=== PATIENT | female | born 1955 | race Caucasian/White ===

== ENCOUNTER 2016-11-20 19:45 | Emergency (ER) | payer MEDICARE, MEDICAID ==
[~2016-11-20] VITALS: Ht 152.4 cm; Wt 78.5 kg
--- NOTE | 2016-11-20 20:12 | ED Integumentary General ---
General Chief Complaint: Skin/Wound Problems Stated Complaint: ARM WOUND Nursing Triage Note: PT TO ED 10 W/ FRIEND FOR C/O BLEEDING WOUND TO LFA. REPORTS HAD SKIN CA FROZEN BY DR ERVIN X2 WKS AGO, BUMPED THE AREA LAST NOC ET HAS BEEN BLEEDING SINCE. NO OTHER C/O VOICED Source: patient Exam Limitations: no limitations History of Present Illness Time seen by provider: 20:10 Initial Comments To ER with complaints of a persistent oozing of blood on the dorsal left forearm. 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 Last night she bumped this area. Since then she's had a slow but persistent oozing of blood. She's had to change the bandage several times. She is on aspirin and Plavix. Timing/Duration: yesterday Severity: moderate Associated Symptoms: denies symptoms Allergies and Home Medications Allergies Coded Allergies: No Known Drug Allergies (Unverified , 11/20/16) Constitutional: see HPI EENTM: see HPI Respiratory: no symptoms reported Cardiovascular: no symptoms reported Genitourinary: no symptoms reported Musculoskeletal: no symptoms reported Skin: see HPI Psychiatric/Neurological: No Symptoms Reported Past Zqonzlo-Xjztjj-Eriidc Hx Patient Social History Alcohol Use: Denies Use Recreational Drug Use: No Smoking Status: Current Everyday Smoker Type Used: Cigarettes 2nd Hand Smoke Exposure: Yes Recent Foreign Travel: No Contact w/Someone Who Travel: No Recent Infectious Disease Expo: No Recent Hopitalizations: No Surgeries Surgeries: Appendectomy, Gallbladder, Hysterectomy, Orthopedic Respiratory Respiratory Disorders: COPD Cardiovascular Cardiac Disorders: Heart Attack, Hypertension Cancer Cancer: Skin Physical Exam Vital Signs Vital Sign - Last 12Hours 11/20/16 19:51 Temp 97.8 Pulse 66 Resp 20 B/P (MAP) 107/71 Pulse Ox 95 O2 Delivery Room Air Capillary Refill : Less Than 3 Seconds General Appearance: WD/WN, no apparent distress HEENT: PERRL/EOMI, normal ENT inspection Neck: non-tender, full range of motion Respiratory: no respiratory distress, no accessory muscle use Gastrointestinal: non tender, soft Neurologic/Psychiatric: alert, normal mood/affect, oriented x 3 Skin: normal color, warm/dry Skin Problem Location: upper extremities (dorsal left forearm there is a open area about 2 cm in diameter with a few small areas of easily controlled bleeding. We will cauterize this with silver nitrate.) Progress/Results/Core Measures Results/Orders Vital Signs/I&O Vital Sign - Last 12Hours 11/20/16 19:51 Temp 97.8 Pulse 66 Resp 20 B/P (MAP) 107/71 Pulse Ox 95 O2 Delivery Room Air Blood Pressure Mean: 83 Departure Impression Impression: Primary Impression: Bleeding from wound Disposition: HOME, SELF-CARE Condition: Stable Departure-Patient Inst. Decision time for Depature: 20:11 Referrals: NO,LOCAL PHYSICIAN (PCP) Primary Care Physician Patient Instructions: NO INSTRUCTIONS GIVEN Add. Discharge Instructions: 1. Follow-up with your doctor next week 3. All discharge instructions reviewed with patient and/or family. Voiced understanding. PIERRE DOMINGUEZ CAR FERRIER Nov 20, 2016 20:12
[2016-11-20 20:14] VITALS: BP 0/0
[2016-11-20] MEDS ORDERED: BACL10TA PO (20:15)
[2016-11-20] MEDS ORDERED: DULO60CA58 PO (20:15)
[2016-11-20] MEDS ORDERED: LEVO125T6 PO (20:15)
[2016-11-20] MEDS ORDERED: CALC600T12 PO (20:15)
[2016-11-20] MEDS ORDERED: TOPI25TA10 PO (20:15)
[2016-11-20] MEDS ORDERED: ASPI-999 PO (20:15)
[2016-11-20] MEDS ORDERED: ROSU10TA24 PO (20:15)
[2016-11-20] MEDS ORDERED: CLOP75TA69 PO (20:15)
[2016-11-20] MEDS ORDERED: DULO30CA48 PO (20:15)
[2016-11-20] MEDS ORDERED: ISOS30TA3 PO (20:15)
[2016-11-20] MEDS ORDERED: BENZ100C23 PO (20:15)
[2016-11-20] MEDS ORDERED: PANT20TA3 PO (20:15)
[2016-11-20] MEDS ORDERED: HYDR-3816 PO (20:15)
[2016-11-20] MEDS ORDERED: NITR0.4T39 SL (20:15)
[2016-11-20] MEDS ORDERED: TRAZ-28 PO (20:15)
[2016-11-20] MEDS ORDERED: UMEC62.5 IH (20:15)
[2016-11-20] MEDS ORDERED: ALPR0.254 PO (20:15)
[2016-11-20] MEDS ORDERED: CETI10TA23 PO (20:15)
== END 2016-11-20 20:14 | disposition home or self-care (01) ==
LOC: EDUNIT# 19:45 → ER 19:49
DX: L76.21 Postprocedural hemorrhage of skin and subcutaneous tissue following a dermatologic procedure (principal); J44.9 Chronic obstructive pulmonary disease, unspecified; I25.2 Old myocardial infarction; I10 Essential (primary) hypertension; F17.210 Nicotine dependence, cigarettes, uncomplicated; Z79.82 Long term (current) use of aspirin; Z79.02 Long term (current) use of antithrombotics/antiplatelets; Z85.828 Personal history of other malignant neoplasm of skin
CPT/HCPCS: 99282

== ENCOUNTER 2016-11-24 21:06 | Emergency (ER) | payer MEDICARE, MEDICAID ==
[~2016-11-24] VITALS: Ht 152.4 cm; Wt 77.6 kg
[~2016-11-24 21:06] MED LIST: ALPR0.254 PO; ASPI-999 PO; BACL10TA PO; BENZ100C23 PO; CALC600T12 PO; CETI10TA23 PO; CLOP75TA69 PO; DULO30CA48 PO; DULO60CA58 PO; HYDR-3816 PO; ISOS30TA3 PO; LEVO125T6 PO; NITR0.4T39 SL; PANT20TA3 PO; ROSU10TA24 PO; TOPI25TA10 PO; TRAZ-28 PO; UMEC62.5 IH
--- OUTSIDE RECORDS SUMMARY | 2016-11-24 21:13 | XMS REPORT | Continuity of Care Document ---
Author Author [employer] Organization [employer] Address Unknown Phone Unavailable Care Team Providers Care [employer] Presser Name Role Phone [employer] Unavailable Unavailable Problems Problem Status Onset Date Classification Date Reported Comments Source Thoracic or lumbosacral neuritis or radiculitis, unspecified 12/31/2014 Diagnosis 01/04/2015 [facility] Cellulitis and abscess of leg, except foot 12/31/2014 Diagnosis 01/04/2015 [facility] Dysuria 12/02/2014 Diagnosis 12/06/2014 [facility] Gross hematuria 12/02/2014 Diagnosis 12/06/2014 [facility] Unspecified chest pain 10/18 Diagnosis 10/23/2014 [facility] Obstructive chronic bronchitis with (acute) exacerbation 10/18/2014 Diagnosis 10/23/2014 [facility] Other and unspecified angina pectoris 10/18/2014 Diagnosis 10/22/2014 [facility] Lumbago 09/03/2014 Diagnosis 09/07/2014 [facility] Unspecified hypothyroidism 09/03/2014 Diagnosis 2014 [facility] Symptomatic menopausal or female climacteric states 09/03/2014 Diagnosis 09/07/2014 [facility] Sciatia 08/23/2014 Diagnosis 08/27/2014 [facility] Hypothyroidism (disorder) Active Problem 01/04/2015 [facility] Lumbar radiculopathy (disorder) Active Problem 2014 [facility] Spondylolisthesis, congenital Diagnosis 08/31/2014 [facility] Degeneration of lumbar or lumbosacral intervertebral disc Diagnosis 08/31/2014 [facility] Lumbosacral spondylosis without myelopathy Diagnosis 03/2015 [facility] Spinal stenosis of lumbar region Diagnosis 08/31/2014 [facility] Medications Medication Details Route Status Patient Instructions Ordering Provider Order Date Source No Known Medications No known medications Active [facility] [place] Allergies, Adverse Reactions, Alerts Immunizations Immunization Date Given Site Status Last Updated Comments Source No data available for this section No data available for this section [facility] [place], [facility] Results Vital Signs Encounters Location Location Details Encounter Type Encounter Number Reason For Visit Attending Provider ADM Date DC Date Status Source [facility] [place] [facility] [id number] Narendra Virk 08/23/20142014 [facility] [place] [facility] Outpatient [id number] Narendra Virk 08/27/2014 08/27/2014 [facility] [place] [facility] [id number] Narendra Virk 09/03/20142014 [facility] [place] [facility] CD:[id number] Amb Surgery [id number] Julio C Amador 09/11/2014 09/11/2014 Active [facility] [id number] Amb Surgery [id number] Jose Alberto Monchoailyn 10/02/2014 10/02/2014 [facility] CD:[id number] Emergency [id number] Angel Gabriel 10/18/2014 10/18/2014 [facility] [place] [facility] [id number] Narendra Virk 10/18/20142014 [facility] [place] [facility] [place] Cancel/No Show [id number] Alyssia Mccarty 11/04/2014 11/04/2014 [facility] [place] [facility] [place] [facility] [id number] Narendra Virk 12/02/20142014 [facility] [place] AFCOS CD:[id number] Clinic ( Outpatient) [id number] Narendra Virk 12/02/2014 Active [facility] [place] [facility] [place] Cancel/No Show [id number] Narendra Virk 12/04/2014 12/02/2014 [facility] [place] [facility] [place] [facility] [id number] Narendra Virk 12/31/20142014 [facility] [place] Procedures Procedure Code Date Perfomer Comments Source Lumbar Steroid Epidural [facility] L-spine surgery - fusion L-4, L-5 09/27/2013 [facility] Heart catheterization with 5 stents placed 09/28/2010 [facility] [place] Heart catheterization with stent placement 05/23/2005 [facility] Cholecystectomy; [id number] 1996 [facility] Total abdominal hysterectomy (corpus and cervix), with or without removal of tube(s), with or without removal of ovary(s); [id number] 05/23/1982 [facility] Appendectomy; 13385 1980 [facility] No data available for this section [facility] bilateral CTR [facility] Ligament repair rt leg [facility] Ulnar nerve transpoaition left [facility] Plan of Care Social History Assessment and Plan Family History Value Date Source Advance Directives Order Name Results Value Date Source
--- OUTSIDE RECORDS SUMMARY | 2016-11-24 21:29 | XMS REPORT | Continuity of Care Document ---
Author Author [facility] Address Unknown Phone Unavailable Allergies Active Description Code Type Severity Reaction Onset Reported/Identified Relationship to Patient Clinical Status Yes No known drug allergies [id number] ND N/A N/A Confirmed or Verified Yes No Known Allergies [id number] Unknown N/A 07/22/2015 Medications Medication Packaging Start Date Stop Date Route Dosage Sig PANTOPRAZOLE 10/10/2016 10/11/2016 ACB LISINOPRIL 10/10/2016 10/11/2016 QD ROSUVASTATIN 10/10/2016 10/11/2016 HS Problems Date Dx Coded Attending Type Code Diagnosis Diagnosed By 03/08/2014 HEATH SIEGEL 276.51 DEHYDRATION 03/08/2014 HEATH SIEGEL 412 OLD MYOCARDIAL INFARCT 03/08/2014 HEATH SIEGEL 429.9 HEART DISEASE NOS 03/08/2014 HEATH SIEGEL 458.9 HYPOTENSION NOS 03/08/2014 HEATH SIEGEL 496 CHR AIRWAY OBSTRUCT NEC 03/08/2014 HEATH SIEGEL 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.1 PARALYTIC ILEUS 03/08/2014 HEATH SIEGEL 787.03 VOMITING ALONE 03/11/2014 JENIFFER JENNINGS 244.9 HYPOTHYROIDISM NOS 03/11/2014 JENIFFER JENNINGS 272.4 HYPERLIPIDEMIA NEC/NOS 03/11/2014 JENIFFER JENNINGS 276.51 DEHYDRATION 03/11/2014 JENIFFER JENNINGS 305.1 TOBACCO USE DISORDER 03/11/2014 JENIFFER JENNINGS 412 OLD MYOCARDIAL INFARCT 03/11/2014 JENIFFER JENNINGS 414.01 CORONARY ATHEROSCLEROSIS 03/11/2014 JENIFFER JENNINGS 458.9 HYPOTENSION NOS 03/11/2014 JENIFFER JENNINGS 496 CHR AIRWAY OBSTRUCT NEC 03/11/2014 JENIFFER JENNINGS 787.91 DIARRHEA 03/11/2014 JENIFFER JENNINGS V45.82 STATUS PTC ANGIOPLASTY Procedures Code [place] [address] ROUTINE VENIPUNCTURE 03/08/2014 09867 CHEST X-RAY 03/08 84717 X-RAY EXAM OF ABDOMEN 03/08/2014 61742 COMPREHEN METABOLIC PANEL 03/08/2014 05893 URINALYSIS, AUTO W/SCOPE 03/08/2014 72825 ASSAY OF LACTIC ACID 03/08/2014 66246 BL SMEAR W/DIFF WBC COUNT 03/08/2014 89503 COMPLETE CBC, AUTOMATED 03/08/2014 11567 BLOOD CULTURE FOR BACTERIA 03/08/2014 24415 HYDRATE IV INFUSION, ADD-ON 03/08/2014 93448 THER/PROPH/DIAG IV INF, INIT 03/08/2014 27625 TX/PRO/DX INJ NEW DRUG ADDON 03/08/2014 92096 EMERGENCY DEPT VISIT 03/08/2014 Results Test Result Range CBC WITH DIFF - 03/08/14 00:00 BANDS 13.0 % 0-5 HCT 37.7 % 36.9-47.0 HGB 12.4 G/DL 12.0-16.0 LYMPH 7.0 % 20-40 MCH 32.2 PG 27-31 MCHC 32.9 G/DL 33-37 MCV 97.9 FL 81-99 MONO 5.0 % 0-10 MPV 10.4 FL 7.3-10.4 PLT 375 10^3u 130-400 RBC 3.9 10^6u 4.2-5.4 RDW 12.5 % 11.5-15.5 WBC 28.5 10^3u 4.8-10.8 SEGS 75.0 % 40-70 CMP - 03/08/14 00:00 ALB 2.9 G/DL 3.5-5 ALP 46 IU/L 25-72 ALT 18 IU/L 12-65 AST 11 IU/L 10-42 BCR 7.0 10-20 BUN 13 MG/DL 7-18 CA 8.7 MG/DL 8.4-10.2 CL 103 MEQ/L 98-107 CO2 25.7 MEQ/L 22-28 CREA 1.85 MG/DL 0.6-1.0 EGFR 28 eGFR >=60 GLU 95 MG/DL 70-105 K 5.2 MEQ/L 3.5-5.1 NA 137 MEQ/L 134-145 OSMSC 273.7 MOSML 280-300 TBIL 0.4 MG/DL 0.1-1.0 TP 7.1 G/DL 6.0-8.3 Albumin/Globulin Ratio 0.7 0-8 Anion Gap 8.3 8-16 LACTIC ACID - 03/08/14 00:00 LA 1.4 MMOLL 0.4-2.0 UA - 03/08/14 00:00 PH 5.5 4.5-8.0 SG 1.004 UABILI NEGATIVE UABLD NEGATIVE UACOLOR YEL UAGLU NEGATIVE UAKET NEGATIVE UALEUK NEGATIVE UANIT NEGATIVE UAURO 0.2 0-0.2 CLARITY CLD PROTEIN NEGATIVE UA WBC R05 UA RBC R05 SQUAMOUS EPITHELIAL CELLS 2+ BACTERIA OCC STOOL WBC - 03/09/14 00:00 STOWBC P Negative CMP - 03/09/14 00:00 ALB 2.5 G/DL 3.5-5 ALP 42 IU/L 25-72 ALT 15 IU/L 12-65 AST 11 IU/L 10-42 BCR 5.8 10-20 BUN 7 MG/DL 7-18 CA 8.1 MG/DL 8.4-10.2 CL 110 MEQ/L 98-107 CO2 25.8 MEQ/L 22-28 CREA 1.20 MG/DL 0.6-1.0 EGFR 46 eGFR >=60 GLU 91 MG/DL 70-105 K 5.4 MEQ/L 3.5-5.1 NA 143 MEQ/L 134-145 OSMSC 282.5 MOSML 280-300 TBIL 0.3 MG/DL 0.1-1.0 TP 5.9 G/DL 6.0-8.3 Albumin/Globulin Ratio 0.7 0-8 Anion Gap 7.2 8-16 CBC WITH DIFF - 03/09/14 00:00 BANDS 3.0 % 0-5 HCT 35.0 % 36.9-47.0 HGB 11.4 G/DL 12.0-16.0 LYMPH 24.0 % 20-40 MCH 32.2 PG 27-31 MCHC 32.6 G/DL 33-37 MCV 98.9 FL 81-99 MONO 4.0 % 0-10 MPV 10.4 FL 7.3-10.4 PLT 289 10^3u 130-400 RBC 3.5 10^6u 4.2-5.4 RDW 12.8 % 11.5-15.5 WBC 12.6 10^3u 4.8-10.8 SEGS 69.0 % 40-70 STOOL CULTURE - QUEST - 03/09/14 00:00 CULTCA SEE NOTE CULTST SEE NOTE SHIGA SEE NOTE OVA AND PARASITE - 03/09/14 00:00 OVA AND PARASITE SEE NOTE CBC WITH DIFF - 03/10/14 00:00 BASO% 0.4 % 0-2 EOS% 2.1 % 0-7.0 HCT 35.8 % 36.9-47.0 HGB 11.5 G/DL 12.0-16.0 LYMPH% 33.1 % 20-40 MCH 32.0 PG 27-31 MCHC 32.1 G/DL 33-37 MCV 99.7 FL 81-99 MONO% 12.2 % 0-10.0 MPV 10.1 FL 7.3-10.4 NEUTRO% 52.2 % 40-70 PLT 293 10^3u 130-400 RBC 3.6 10^6u 4.2-5.4 RDW 12.6 % 11.5-15.5 WBC 8.1 10^3u 4.8-10.8 NEUTRO# 4.3 10^3u 1.5-7.5 LYMPH# 2.7 10^3u 0.9-4.0 MONO# 1.0 10^3u 0-0.8 EOS# 0.2 10^3u 0-0.6 BASO# 0.0 10^3u 0-0.1 BMP - 03/10/14 00:00 BCR 5.8 10-20 BUN 7 MG/DL 7-18 CA 8.5 MG/DL 8.4-10.2 CL 108 MEQ/L 98-107 CO2 26.9 MEQ/L 22-28 CREA 1.20 MG/DL 0.6-1.0 EGFR 46 eGFR >=60 GLU 98 MG/DL 70-105 K 4.8 MEQ/L 3.5-5.1 NA 143 MEQ/L 134-145 OSMSC 282.9 MOSML 280-300 Anion Gap 8.1 8-16 CBC WITH DIFF - 03/15/14 00:00 BASO% 0.4 % 0-2 EOS% 2.7 % 0-7.0 HCT 38.7 % 36.9-47.0 HGB 12.5 G/DL 12.0-16.0 LYMPH% 33.3 % 20-40 MCH 31.6 PG 27-31 MCHC 32.3 G/DL 33-37 MCV 97.7 FL 81-99 MONO% 9.3 % 0-10.0 MPV 10.6 FL 7.3-10.4 NEUTRO% 54.3 % 40-70 PLT 401 10^3u 130-400 RBC 4.0 10^6u 4.2-5.4 RDW 13.2 % 11.5-15.5 WBC 11.2 10^3u 4.8-10.8 NEUTRO# 6.1 10^3u 1.5-7.5 LYMPH# 3.7 10^3u 0.9-4.0 MONO# 1.0 10^3u 0-0.8 EOS# 0.3 10^3u 0-0.6 BASO# 0.0 10^3u 0-0.1 CMP - 03/15/14 00:00 ALB 3.2 G/DL 3.5-5 ALP 43 IU/L 25-72 ALT 21 IU/L 12-65 AST 13 IU/L 10-42 BCR 6.7 10-20 BUN 8 MG/DL 7-18 CA 9.0 MG/DL 8.4-10.2 CL 104 MEQ/L 98-107 CO2 26.8 MEQ/L 22-28 CREA 1.19 MG/DL 0.6-1.0 EGFR 47 eGFR >=60 GLU 143 MG/DL 70-105 K 3.4 MEQ/L 3.5-5.1 NA 141 MEQ/L 134-145 OSMSC 282.1 MOSML 280-300 TBIL 0.2 MG/DL 0.1-1.0 TP 7.4 G/DL 6.0-8.3 Albumin/Globulin Ratio 0.8 0-8 Anion Gap 10.2 8-16 CBC with Auto Diff - 10/09/16 23:15 WBC - WHITE CELL COUNT 10.4 X10(3) 4.5-11.0 RBC - RED CELL COUNT 4.08 X10(6) 4.20-5.40 PLATELET COUNT 228 X10(3) 150-450 HEMOGLOBIN 14.2 g/dl 12.0-16.0 HEMATOCRIT 40.0 % 38.0-47.0 MCV 98.0 fL 80.0-96.0 MCH 35 pg 27-31 MCHC 35.5 % 32.0-36.0 LYMPHS 20.2 % 20.0-45.0 MONOS 9.2 % 0.0-15.0 NEUTROPHILS 70.6 % 40.0-80.0 TSH - 10/09/16 23:15 TSH 4.01 uIU/ml 0.36-3.74 CMP - COMPREHENSIVE METABOLIC PANEL - 10/09/16 23:15 GLUCOSE 91 mg/dl 74-106 BUN 15 mg/dl 7-18 CREATININE 0.93 mg/dl 0.55-1.02 eGFR >60 mL/min >60 SODIUM (NA) 140 mEq/L 136-146 POTASSIUM, BLOOD 3.8 mEq/L 3.5-5.1 CHLORIDE 108 mEq/L 98-107 CO2 (BICARBONATE) 23 mEq/L 21-32 CALCIUM 8.1 mg/dl 8.5-10.1 ALBUMIN, SERUM 3.1 g/dl 3.4-5.0 PROTEIN, TOTAL 6.3 g/dl 6.4-8.2 AST (SGOT) 14 U/L 15-37 ALT (SGPT) 40 U/L 14-59 ALK PHOS 32 U/L 46-116 BILIRUBIN, TOTAL 0.4 mg/dl 0.2-1.0 MAGNESIUM - 10/09/16 23:15 MAGNESIUM 2.1 mg/dl 1.8-2.4 LIPID PANEL - 10/09/16 23:15 CHOLESTEROL 119 mg/dl <=199 HDL CHOLESTEROL 62 mg/dl 40-60 TRIGLYCERIDES 54 mg/dl <=200 LDL, CALCULATED 46.2 mg/dl 0.0-99.0 VLDL, CALCULATED 10.8 mg/dl 0.0-130.0 CARDIAC RISK 2 CKMB (INCLD. CK, CKMB, INDEX) - 10/09/16 23:15 CPK-CREATINE KINASE 87.00 U/L 26.00-192.00 CKMB 1.8 ng/ml <=3.6 CKMB MASS INDEX 2.1 TROPONIN-I - 10/09/16 23:15 TROPONIN-I <0.02 ng/ml <=0.05 HOLD SPECIMEN FOR BLOOD BANK - 10/09/16 23:15 HOLD SPECIMEN FOR BLOOD BANK ARC MRSA SCREEN, INFECTION CONTROL - 10/10/16 06:05 MRSA Screen by Culture Source: Nares Collected: 10/10/16 06:05 CKMB (INCLD. CK, CKMB, INDEX) - 10/10/16 08:04 CPK-CREATINE KINASE 78.00 U/L 26.00-192.00 CKMB 1.0 ng/ml <=3.6 CKMB MASS INDEX 1.3 TROPONIN-I - 10/10/16 08:04 TROPONIN-I <0.02 ng/ml <=0.05 FREE T4 - 10/10/16 08:04 FREE T4 0.99 ng/dL 0.76-1.46 CKMB (INCLD. CK, CKMB, INDEX) - 10/10/16 15:35 CPK-CREATINE KINASE 81.00 U/L 26.00-192.00 CKMB 1.1 ng/ml <=3.6 CKMB MASS INDEX 1.4 TROPONIN-I - 10/10/16 15:35 TROPONIN-I <0.02 ng/ml <=0.05 MAGNESIUM - 10/11/16 05:00 MAGNESIUM 2.2 mg/dl 1.8-2.4 BMP - BASIC METABOLIC PANEL - 10/11/16 05:00 GLUCOSE 99 mg/dl 74-106 BUN 19 mg/dl 7-18 CREATININE 0.89 mg/dl 0.55-1.02 eGFR >60 mL/min >60 SODIUM (NA) 140 mEq/L 136-146 POTASSIUM, BLOOD 4.3 mEq/L 3.5-5.1 CHLORIDE 106 mEq/L 98-107 CO2 (BICARBONATE) 25 mEq/L 21-32 CALCIUM 9.3 mg/dl 8.5-10.1 Encounters ACCT No. Visit Date/Time Discharge Status Pt. Type Provider Facility Loc./Unit Complaint [id number] 01/29/2014 12:20:00 01/29/2014 23: 59:59 CLS Outpatient SHEIKH BENIGNO, ZENON Cook
--- NOTE | 2016-11-24 21:53 | ED Upper Extremity ---
General Chief Complaint: Upper Extremity Stated Complaint: LT ARM PROCEDURE BLEEDING Nursing Triage Note: PT STATES THAT A LESION ON HER LEFT ARM HAS EXCESSIVE BLEEDING. Nursing Sepsis Screen: No Definite Risk History of Present Illness Time seen by provider: 21:30 Initial Comments Patient had another biopsy done on her left elbow, today by Dr. Ramos, just proximal to her previous biopsy. Approximately one hour after the procedure she had bleeding from the site (1500) She is on Plavix and aspirin. She's been changing the dressing and has saturated it 3-4 times today. She is using Band- Aids and small amounts of Telfa. Pain/Injury Location: left elbow Method of Injury: other (biopsy) Allergies and Home Medications Allergies Coded Allergies: No Known Drug Allergies (Unverified , 11/20/16) Home Medications Alprazolam 0.25 Mg Tablet, 0.25 MG PO TID, (Reported) Aspirin 81 Mg Tab.chew, 81 MG PO DAILY, (Reported) Baclofen 10 Mg Tablet, 10 MG PO TID, (Reported) Benzonatate 100 Mg Capsule, 100 MG PO TID, (Reported) Calcium Carbonate 600 Mg Tablet, 600 MG PO BID, (Reported) Cetirizine HCl 10 Mg Tab.chew, 10 MG PO, (Reported) Clopidogrel Bisulfate 75 Mg Tablet, 75 MG PO DAILY, (Reported) Duloxetine HCl 60 Mg Capsule.dr, 60 MG PO DAILY, (Reported) Duloxetine HCl 30 Mg Capsule.dr, 30 MG PO, (Reported) Hydrocodone/Acetaminophen 1 Each Tablet, 1 EACH PO PRN, (Reported) Isosorbide Mononitrate 30 Mg Tab.er.24h, 30 MG PO DAILY, (Reported) Levothyroxine Sodium 125 Mcg Tablet, 125 MCG PO DAILY, (Reported) Nitroglycerin 0.4 Mg Tab.subl, 0.4 MG SL, (Reported) Pantoprazole Sodium 20 Mg Tablet.dr, 20 MG PO DAILY, (Reported) Rosuvastatin Calcium 10 Mg Tablet, 10 MG PO DAILY, (Reported) Topiramate 25 Mg Tablet, 25 MG PO BID, (Reported) Trazodone HCl 50 Mg Tablet, 50 MG PO HS, (Reported) Umeclidinium [place] 62.5 Mcg Blst.w.dev, 62.5 MCG IH, (Reported) Constitutional: no symptoms reported, see HPI EENTM: no symptoms reported, see HPI Respiratory: no symptoms reported, see HPI Cardiovascular: no symptoms reported, see HPI Gastrointestinal: no symptoms reported, see HPI Genitourinary: no symptoms reported, see HPI Musculoskeletal: no symptoms reported, see HPI Skin: see HPI, other (bleeding from wound site) Psychiatric/Neurological: No Symptoms Reported, See HPI All Other Systems Reviewed Negative Unless Noted: Yes Past Kznuivq-Mxwtla-Jqvlen Hx Patient Social History Alcohol Use: Denies Use Recreational Drug Use: No Smoking Status: Current Everyday Smoker Type Used: Cigarettes 2nd Hand Smoke Exposure: Yes Recent Foreign Travel: No Contact w/Someone Who Travel: No Recent Infectious Disease Expo: No Recent Hopitalizations: No Seasonal Allergies Seasonal Allergies: Yes Surgeries Surgeries: Appendectomy, Gallbladder, Hysterectomy, Orthopedic Respiratory Respiratory Disorders: COPD Cardiovascular Cardiac Disorders: Heart Attack, Hypertension Cancer Cancer: Skin Reviewed Nursing Assessment Reviewed/Agree w Nursing PMH: Yes Physical Exam Vital Signs Vital Sign - Last 12Hours 11/24/16 21:27 Temp 98.0 Pulse 78 Resp 20 B/P (MAP) 121/89 Pulse Ox 96 O2 Delivery Room Air Capillary Refill : Less Than 3 Seconds General Appearance: WD/WN, no apparent distress Cardiovascular: normal peripheral pulses, regular rate, rhythm Elbow/Forearm: normal inspection, normal ROM, Left (patient has a Coban and dressing to the distal biopsy site. There is trace active bleeding from the proximal, new biopsy site. A pressure dressing was applied and minimal bleeding was noted after this. The site was cauterized with silver nitrate. A nonadherent dressing was applied with an Temo wrap bandage.) Neurologic/Psychiatric: no motor/sensory deficits, alert, normal mood/affect, oriented x 3 Progress/Results/Core Measures Results/Orders Vital Signs/I&O Vital Sign - Last 12Hours 11/24/16 21:27 Temp 98.0 Pulse 78 Resp 20 B/P (MAP) 121/89 Pulse Ox 96 O2 Delivery Room Air Blood Pressure Mean: 100 Departure Impression Impression: Primary Impression: Bleeding from wound Disposition: 01 HOME, SELF-CARE Condition: Improved Departure-Patient Inst. Decision time for Depature: 21:45 Referrals: HECTOR LIEBERMAN MD (PCP/Family) Primary Care Physician Patient Instructions: Wound Care (DC) Add. Discharge Instructions: Compressive dressing site. Ice packs for 10-20 minutes if bleeding returns. Follow-up with Dr. Youstus. Return to emergency department for bleeding problems, new concerns or problems. All discharge instructions reviewed with patient and/or family. Voiced understanding. Copy Copies To 1: LONG ERVIN MD, AMY ARNP Nov 24, 2016 21:53
[2016-11-24 22:04] VITALS: BP 121/89
== END 2016-11-24 22:04 | disposition home or self-care (01) ==
LOC: EDUNIT# 21:06 → ER 21:09
DX: L76.21 Postprocedural hemorrhage of skin and subcutaneous tissue following a dermatologic procedure (principal); J44.9 Chronic obstructive pulmonary disease, unspecified; I10 Essential (primary) hypertension; I25.2 Old myocardial infarction; F17.210 Nicotine dependence, cigarettes, uncomplicated; Z79.02 Long term (current) use of antithrombotics/antiplatelets; Z79.82 Long term (current) use of aspirin; Z85.828 Personal history of other malignant neoplasm of skin
CPT/HCPCS: 99282

== ENCOUNTER 2017-01-20 18:37 | Emergency (ER) | payer MEDICARE, MEDICAID ==
[~2017-01-20] VITALS: Ht 152.4 cm; Wt 77.6 kg
[~2017-01-20 18:37] MED LIST changes: +BENZ-36 PO; -BENZ100C23 PO
--- OUTSIDE RECORDS SUMMARY | 2017-01-20 18:44 | XMS REPORT | Continuity of Care Document ---
Author Author [employer] Organization [employer] Address Unknown Phone Unavailable Care Team Providers Care Justice Professor Name Role Phone [employer] Unavailable Unavailable Problems Problem Status Onset Date Classification Date Reported Comments Source Thoracic or lumbosacral neuritis or radiculitis, unspecified 12/31/2014 Diagnosis 01/04/2015 [facility] Cellulitis and abscess of leg, except foot 12/31/2014 Diagnosis 01/04/2015 [facility] Dysuria 12/02/2014 Diagnosis 12/06/2014 [facility] Gross hematuria 12/02/2014 Diagnosis 12/06/2014 [facility] Unspecified chest pain 10/18 Diagnosis 10/23/2014 [facility] Obstructive chronic bronchitis with (acute) exacerbation 10/18/2014 Diagnosis 10/23/2014 [facility] Other and unspecified angina pectoris 10/18/2014 Diagnosis 10/22/2014 [facility] Lumbago 09/03/2014 Diagnosis 09/07/2014 [facility] Unspecified hypothyroidism 09/03/2014 Diagnosis 2014 [facility] Symptomatic menopausal or female climacteric states 09/03/2014 Diagnosis 09/07/2014 [facility] Sciatia 08/23/2014 Diagnosis 08/27/2014 [facility] Hypothyroidism (disorder) Active Problem 01/04/2015 [facility] Lumbar radiculopathy (disorder) Active Problem 2014 [facility] Spondylolisthesis, congenital Diagnosis 08/31/2014 [facility] Degeneration of lumbar or lumbosacral intervertebral disc Diagnosis 08/31/2014 [facility] Lumbosacral spondylosis without myelopathy Diagnosis 03/2015 [facility] Spinal stenosis of lumbar region Diagnosis 08/31/2014 [facility] Medications Medication Details Route Status Patient Instructions Ordering Provider Order Date Source No Known Medications No known medications Active [facility] [place] Allergies, Adverse Reactions, Alerts Immunizations Immunization Date Given Site Status Last Updated Comments Source No data available for this section No data available for this section [facility] [place], [facility] Results Vital Signs Encounters Location Location Details Encounter Type Encounter Number Reason For Visit Attending Provider ADM Date DC Date Status Source [facility] [place] [facility] [id number] Narendra Virk 08/23/20142014 [facility] [place] [facility] Outpatient [id number] Narendra Virk 08/27/2014 08/27/2014 [facility] [place] [facility] [id number] Narendra Virk 09/03/20142014 [facility] [place] [facility] [id number] Amb Surgery [id number] Julio C Amador 09/11/2014 09/11/2014 Active [facility] [id number] Amb Surgery [id number] Jose Alberto Monchoailyn 10/02/2014 10/02/2014 [facility] [id number] Emergency [id number] Angel Gabriel 10/18/2014 10/18/2014 [facility] [place] [facility] [id number] Narendra Virk 10/18/20142014 [facility] [place] [facility] [place] Cancel/No Show [id number] Alyssia Mccarty 11/04/2014 11/04/2014 [facility] [place] [facility] [place] [facility] [id number] Narendra Virk 12/02/20142014 [facility] [place] AFCOS [id number] Clinic ( Outpatient) [id number] Narendra Virk 12/02/2014 Active [facility] [place] [facility] [place] Cancel/No Show [id number] Narendra Virk 12/04/2014 12/02/2014 [facility] [place] [facility] [place] [facility] [id number] Narendra Virk 12/31/20142014 [facility] [place] Procedures Procedure Code Date Perfomer Comments Source Lumbar Steroid Epidural [facility] L-spine surgery - fusion L-4, L-5 09/27/2013 [facility] [place] Heart catheterization with 5 stents placed 09/28/2010 [facility] [place] Heart catheterization with stent placement 05/23/2005 [facility] [place] Cholecystectomy; 89024 1996 [facility] [place] Total abdominal hysterectomy (corpus and cervix), with or without removal of tube(s), with or without removal of ovary(s); [id number] 05/23/1982 [facility] [place] Appendectomy; 99522 1980 [facility] [place] No data available for this section [facility] [place] bilateral CTR [facility] Ligament repair rt leg [facility] Ulnar nerve transpoaition left [facility] Plan of Care Social History Assessment and Plan Family History Value Date Source Advance Directives Order Name Results Value Date Source
--- OUTSIDE RECORDS SUMMARY | 2017-01-20 18:56 | XMS REPORT ---
Author Author HECTOR LIEBERMAN [facility] [place] Address [address] [place] [address] Care Team Providers Care Silk Opener Name Role Phone HECTOR LIEBERMAN Unavailable PROBLEMS Type Condition ICD9-CM Code [id number] Code Onset Dates Condition Status SNOMED Code Problem Coronary artery disease 414.00 Active 23499595 Problem Peripheral vascular disease I73.9 Active 233152402 Problem Hyperlipidemia 272.4 Active 56199677 Problem Lumbar degenerative disc disease M51.36 Active 21026473 Problem Hypertension 401.9 Active 02783386 Problem Osteoporosis M81.0 Active 46206036 Problem Cellulitis, abdominal wall L03.311 Active 11994110 Problem Anxiety F41.9 Active 71121112 Problem Chronic fatigue R53.82 Active 99424974 Problem Leukocytosis, unspecified D72.829 Active 959458169 Problem Atherosclerotic heart disease of [place] coronary artery without angina pectoris I25.10 Active 107030028464465 Problem Chronic pain G89.29 Active 28025753 Problem Encounter for immunization Z23 Active 112753740 Problem Post-menopausal bleeding N95.0 Active 58666325 Problem Degenerative disc disease, cervical M50.30 Active 23468782 Problem Seasonal allergic rhinitis due to pollen J30.1 Active 64202531 Problem Rhinosinusitis J32.9 Active 86743916 Problem Primary insomnia F51.01 Active 1382347 Problem Migraine aura without headache G43.109 Active 691036982 Problem Hyperlipidemia, unspecified E78.5 Active 30082489 Problem Essential (primary) hypertension I10 Active 55015032 Problem COPD with exacerbation J44.1 Active 735620860 Problem Insomnia, unspecified type G47.00 Active 678515901 Problem Hypothyroidism, unspecified E03.9 Active 83604782 Problem Chronic obstructive pulmonary disease, unspecified COPD type J44.9 Active 50435556 ALLERGIES Unknown Allergies SOCIAL HISTORY No smoking Hx information available PLAN OF CARE Activity Details Follow Up prn Reason: VITAL SIGNS MEDICATIONS Unknown Medications RESULTS No Results PROCEDURES Procedure Date Ordered Related Diagnosis Body Site ROUTINE VENIPUNCTURE 2016-05-12 N/A LAB NOT [facility]ILL[facility] May 12, 2016 VENIPUNCT, ROUTINE* May 12, 2016 IMMUNIZATIONS No Known Immunizations
--- OUTSIDE RECORDS SUMMARY | 2017-01-20 19:00 | XMS REPORT ---
Author Author HECTOR LIEBERMAN [facility] [place] Address [address] [place] [address] Care Team Providers Care Slot Key Person Name Role Phone HECTOR LIEBERMAN Unavailable PROBLEMS Type Condition ICD9-CM Code [id number] Code Onset Dates Condition Status SNOMED Code Problem Coronary artery disease 414.00 Active 74134230 Problem Peripheral vascular disease I73.9 Active 759457699 Problem Hyperlipidemia 272.4 Active 48325772 Problem Lumbar degenerative disc disease M51.36 Active 41999966 Problem Hypertension 401.9 Active 69529325 Problem Osteoporosis M81.0 Active 16309482 Problem Cellulitis, abdominal wall L03.311 Active 36207560 Problem Anxiety F41.9 Active 54822607 Problem Chronic fatigue R53.82 Active 86356446 Problem Leukocytosis, unspecified D72.829 Active 447968148 Problem Atherosclerotic heart disease of [place] coronary artery without angina pectoris I25.10 Active 238587299312509 Problem Chronic pain G89.29 Active 07215104 Problem Encounter for immunization Z23 Active 501388440 Problem Post-menopausal bleeding N95.0 Active 96696582 Problem Degenerative disc disease, cervical M50.30 Active 34033667 Problem Seasonal allergic rhinitis due to pollen J30.1 Active 12125621 Problem Rhinosinusitis J32.9 Active 94621792 Problem Primary insomnia F51.01 Active 4846385 Problem Migraine aura without headache G43.109 Active 381136310 Problem Hyperlipidemia, unspecified E78.5 Active 56259570 Problem Essential (primary) hypertension I10 Active 58960790 Problem COPD with exacerbation J44.1 Active 045283155 Problem Insomnia, unspecified type G47.00 Active 923055403 Problem Hypothyroidism, unspecified E03.9 Active 19986385 Problem Chronic obstructive pulmonary disease, unspecified COPD type J44.9 Active 15700536 ALLERGIES Substance Reaction Event Type Date Status N.K.D.A. Unknown Non Drug Allergy Apr, Unknown SOCIAL HISTORY No smoking Hx information available PLAN OF CARE Activity Details Follow Up 4 Weeks Reason:med refill VITAL SIGNS Height 61 in 2016-05-06 Weight 171.8 lbs 2016-05-06 Temperature 97.8 degrees Fahrenheit 2016-05-06 Heart Rate 58 bpm 2016-05-06 Respiratory Rate 20 2016-05-06 Oximetry 99 % 2016-05-06 BMI 32.46 kg/m2 2016-05-06 Blood pressure systolic 118 mmHg 2016-05-06 Blood pressure diastolic 68 mmHg 2016-05-06 MEDICATIONS Medication Instructions Dosage Frequency Start Date End Date Duration Status Isosorbide Mononitrate CR 30MG TAKE ONE TABLET BY MOUTH ONCE DAILY 90 Active Clopidogrel Bisulfate 75 MG Orally Once a day 1 tablet 24h Active Levothyroxine Sodium 125 mcg 1 tablet Once a day Orally 30 Active Vitamin D (Cholecalciferol) 400 UNIT Orally Once a day take 1 tablet 24h Active Duloxetine HCl 60 mg Orally Once a day 1 capsule 24h Active Alendronate Sodium 70 MG Orally Once a week 1 tablet Active Plavix 75MG TAKE ONE TABLET BY MOUTH ONCE DAILY 90 Active [place] 3 1000 MG Orally twice a day 1 capsule 12h Active Topiramate 25MG TAKE ONE TABLET BY MOUTH TWICE DAILY FOR 30 DAYS 30 Active Pantoprazole Sodium 20MG TAKE ONE TABLET BY MOUTH ONCE DAILY 30 Active Hydrocodone-Acetaminophen 5-325 MG Orally every 6 hrs 1 tablet as needed 6h Jul, Active Trazodone HCl 50 mg Orally Once a day 0.5-1 tablet at bedtime as needed 24h Active Xanax 0.25 MG Orally Three times a day prn anxiety 1 tablet Mar, Active Incruse Ellipta 62.5 MCG/INH Inhalation Once a day 1 puff 24h Active Baclofen 10 mg Orally Three times a day 0.5-1 tablet with food or milk 8h 20 Active Hydrocodone-Acetaminophen 7.5-325 MG Orally 3 times a day 1 tablet as needed 8h 16 Mar, 2016 Active Crestor 10 MG Orally Once a day 1 tablet 24h 30 days Active Zyrtec Allergy 10MG as directed 30 Active Aspirin 81 MG Orally Once a day 1 tablet 24h Active Calcium 600 MG Orally Twice a day 1 tablet with meals 12h Active Duloxetine HCl 60MG TAKE ONE CAPSULE BY MOUTH ONCE DAILY 30 Active RESULTS No Results PROCEDURES Procedure Date Ordered Related Diagnosis Body Site MEASURE BLOOD OXYGEN LEVEL May 06, 2016 [facility] VISIT ESTABLISHED PATIENT May 06, 2016 Office Visit, Est Pt., Level 4 May 06, 2016 IMMUNIZATIONS No Known Immunizations
--- NOTE | 2017-01-20 19:34 | ED Integumentary General ---
General Chief Complaint: Skin/Wound Problems Stated Complaint: RIGHT HAND INJ Nursing Triage Note: c/o R hand wound History of Present Illness Time seen by provider: 19:15 Initial Comments Patient reports hitting her right hand, dorsal surface on a chair, with intermittent bleeding since this happened yesterday. Timing/Duration: yesterday Severity: mild Location: hands (right) Associated Symptoms: denies symptoms Allergies and Home Medications Allergies Coded Allergies: No Known Drug Allergies (Unverified , 11/20/16) Home Medications Alprazolam 0.25 Mg Tablet, 0.25 MG PO TID, (Reported) Aspirin 81 Mg Tab.chew, 81 MG PO DAILY, (Reported) Baclofen 10 Mg Tablet, 10 MG PO TID, (Reported) Benzonatate 100 Mg Capsule, 100 MG PO TID, (Reported) Calcium Carbonate 600 Mg Tablet, 600 MG PO BID, (Reported) Cetirizine HCl 10 Mg Tab.chew, 10 MG PO, (Reported) Clopidogrel Bisulfate 75 Mg Tablet, 75 MG PO DAILY, (Reported) Duloxetine HCl 60 Mg Capsule.dr, 60 MG PO DAILY, (Reported) Duloxetine HCl 30 Mg Capsule.dr, 30 MG PO, (Reported) Hydrocodone/Acetaminophen 1 Each Tablet, 1 EACH PO PRN, (Reported) Isosorbide Mononitrate 30 Mg Tab.er.24h, 30 MG PO DAILY, (Reported) Levothyroxine Sodium 125 Mcg Tablet, 125 MCG PO DAILY, (Reported) Nitroglycerin 0.4 Mg Tab.subl, 0.4 MG SL, (Reported) Pantoprazole Sodium 20 Mg Tablet.dr, 20 MG PO DAILY, (Reported) Rosuvastatin Calcium 10 Mg Tablet, 10 MG PO DAILY, (Reported) Topiramate 25 Mg Tablet, 25 MG PO BID, (Reported) Trazodone HCl 50 Mg Tablet, 50 MG PO HS, (Reported) Umeclidinium [place] 62.5 Mcg Blst.w.dev, 62.5 MCG IH, (Reported) Constitutional: no symptoms reported, see HPI Skin: see HPI, lesions (superficial abrasion with active bleeding dorsum right hand) All Other Systems Reviewed Negative Unless Noted: Yes Past [id number]-[id number]-Bvsjop Hx Patient Social History Alcohol Use: Denies Use Recreational Drug Use: No Type Used: Cigarettes 2nd Hand Smoke Exposure: Yes Recent Foreign Travel: No Contact w/Someone Who Travel: No Recent Infectious Disease Expo: No Recent Hopitalizations: No Seasonal Allergies Seasonal Allergies: Yes Surgeries History of Surgeries: Yes Surgeries: Appendectomy, Gallbladder, Hysterectomy, Orthopedic Respiratory History of Respiratory Disorde: Yes Respiratory Disorders: COPD Cardiovascular History of Cardiac Disorders: Yes (STENT PLACED X11) Cardiac Disorders: Heart Attack, Hypertension Neurological History of Neurological Disord: No Genitourinary History of Genitourinary Disor: No Gastrointestinal History of Gastrointestinal Di: No Musculoskeletal History of Musculoskeletal Dis: No Endocrine History of Endocrine Disorders: No HEENT History of HEENT Disorders: No Cancer History of Cancer: Yes Cancer: Skin Psychosocial History of Psychiatric Problem: No Integumentary History of Skin or Integumenta: No Blood Transfusions History of Blood Disorders: No Reviewed Nursing Assessment Reviewed/Agree w Nursing PMH: Yes Physical Exam Vital Signs Vital Sign - Last 12Hours 01/20/17 19:05 Temp 98.7 Pulse 78 Resp 18 B/P (MAP) 130/77 Pulse Ox 94 Capillary Refill : Less Than 3 Seconds General Appearance: WD/WN, no apparent distress Cardiovascular: normal peripheral pulses, regular rate, rhythm Respiratory: chest non-tender, lungs clear Neurologic/Psychiatric: no motor/sensory deficits, alert, normal mood/affect, oriented x 3 Skin: normal color, warm/dry, other (0.5 cm superficial abrasion to dorsum of right hand with active bleeding. The patient has small 4 x [address]. Reports she's had to change the dressing every 2-3 hours for bleeding) Progress/Results/Core Measures Results/Orders Vital Signs/I&O Vital Sign - Last 12Hours 01/20/17 01/20/17 19:05 19:41 Temp 98.7 98.7 Pulse 78 78 Resp 18 18 B/P (MAP) 130/77 Pulse Ox 94 94 Blood Pressure Mean: 94 Progress Note : Time: 19:15 Progress Note Initial evaluation completed, silver nitrate stick used, bleeding ceased. Bulky dressing applied with compression by Temo wrap. Ice pack applied to right hand. Departure Impression Impression: Primary Impression: Abrasion Disposition: 01 HOME, SELF-CARE Condition: Improved Departure-Patient Inst. Decision time for Depature: 19:30 Referrals: EHCTOR LIEBERMAN MD (PCP/Family) Primary Care Physician Patient Instructions: Skin Abrasions (DC) Add. Discharge Instructions: Keep bulky dressing on for the next day. Ice to right hand 20 minutes every 2-3 hours. For new abrasions or lacerations, use a compressive dressing and ice immediately. Also elevate higher than the heart. Return to emergency department if bleeding continues, or new problems. All discharge instructions reviewed with patient and/or family. Voiced understanding. FILIBERTO MCCLELLAN Jan 20, 2017 19:34
[2017-01-20 19:41] VITALS: BP 130/77
[2017-03-01] MEDS ORDERED: LISI-556 PO (16:34)
[2017-03-01] MEDS ORDERED: METO-333 PO (16:34)
== END 2017-01-20 19:41 | disposition home or self-care (01) ==
LOC: EDUNIT# 18:37 → ER 18:38
DX: S60.511A Abrasion of right hand, initial encounter (principal); J44.9 Chronic obstructive pulmonary disease, unspecified; I25.2 Old myocardial infarction; I10 Essential (primary) hypertension; Z95.5 Presence of coronary angioplasty implant and graft; Z85.828 Personal history of other malignant neoplasm of skin; Z79.82 Long term (current) use of aspirin; Z77.22 Contact with and (suspected) exposure to environmental tobacco smoke (acute) (chronic); Z90.49 Acquired absence of other specified parts of digestive tract; Z90.710 Acquired absence of both cervix and uterus; W22.03XA Walked into furniture, initial encounter
CPT/HCPCS: 99282

== ENCOUNTER → 2017-02-17 | Outpatient (CLI) | payer MEDICARE, MEDICAID ==
[~2017-02-17] MED LIST changes: +LISI-556 PO; +METO-333 PO
--- NOTE | 2017-02-17 12:11 | Diagnostic Imaging Report ---
EXAMINATION: DEXA scan. INDICATION: Osteopenia. TECHNIQUE: Bone mineral density estimated based on dual energy radiography over the lumbar spine and femoral necks, was performed. FINDINGS: The T score in the left femoral neck is -0.1 and on the right side is -0.6. T score over the lumbar spine could not be measured due to fusion hardware. IMPRESSION: Bone mineral density within normal limits. Dictated by: Dictated on workstation # [id number]
--- NOTE | 2017-03-02 14:02 | Diagnostic Imaging Report ---
Bilateral screening mammogram 2D views with tomosynthesis. The current study was also evaluated with a Computer Aided Detection (CAD) system. INDICATION: Screening. No current complaints stated on the questionnaire. COMPARISON: 02/06/15 FINDINGS: The breasts are composed of scattered fibroglandular densities. No mass, architectural distortion or suspicious cluster of calcification is seen. Intramammary lymph node in the axillary tail of the right breast is again noted. Allowing for technique and positional differences, no suspicious change is seen. IMPRESSION: No significant change. ACR BI-RADS Category 2: Benign findings. Result letter will be mailed to the patient. Note: At least 10% of breast cancer is not imaged by mammography. Dictated by: Dictated on workstation # [id number]
== END ==
LOC: RAD 09:53
PROVIDERS: ATTEND Family Medicine
DX: Z12.31 Encounter for screening mammogram for malignant neoplasm of breast (principal); N95.1 Menopausal and female climacteric states; Z13.820 Encounter for screening for osteoporosis; Z72.0 Tobacco use
CPT/HCPCS: 77067; 77080

== ENCOUNTER 2017-03-01 00:11 | Day surgery (SDC) | payer MEDICARE, MEDICAID ==
[2017-03-01] VITALS (14 sets, daily range): BP systolic 96–128; BP diastolic 61–77
[~2017-03-01] VITALS: Ht 152.4 cm; Wt 77.1 kg
[~2017-03-01 00:11] MED LIST changes: -BENZ-36 PO; +BENZ100C23 PO; -LISI-556 PO; -METO-333 PO
--- OUTSIDE RECORDS SUMMARY | 2017-03-01 00:19 | XMS REPORT | Continuity of Care Document ---
Author Author [employer] Organization [facility] Address Unknown Phone Unavailable Care Team Providers Care Education Liaison Name Role Phone [employer] Unavailable Unavailable Problems Problem Status Onset Date Classification Date Reported Comments Source Thoracic or lumbosacral neuritis or radiculitis, unspecified 12/31/2014 Diagnosis 01/04/2015 [facility] Cellulitis and abscess of leg, except foot 12/31/2014 Diagnosis 01/04/2015 [facility] Dysuria 12/02/2014 Diagnosis 12/06/2014 [facility] Gross hematuria 12/02/2014 Diagnosis 12/06/2014 [facility] Unspecified chest pain 10/18 Diagnosis 10/23/2014 [facility] Obstructive chronic bronchitis with (acute) exacerbation 10/18/2014 Diagnosis 10/23/2014 [facility] Other and unspecified angina pectoris 10/18/2014 Diagnosis 10/22/2014 [facility] Lumbago 09/03/2014 Diagnosis 09/07/2014 [facility] Unspecified hypothyroidism 09/03/2014 Diagnosis 2014 [facility] Symptomatic menopausal or female climacteric states 09/03/2014 Diagnosis 09/07/2014 [facility] Sciatia 08/23/2014 Diagnosis 08/27/2014 [facility] Hypothyroidism (disorder) Active Problem 01/04/2015 [facility] Lumbar radiculopathy (disorder) Active Problem 2014 [facility] Spondylolisthesis, congenital Diagnosis 08/31/2014 [facility] Degeneration of lumbar or lumbosacral intervertebral disc Diagnosis 08/31/2014 [facility] Lumbosacral spondylosis without myelopathy Diagnosis 03/2015 [facility] Spinal stenosis of lumbar region Diagnosis 08/31/2014 [facility] Medications Medication Details Route Status Patient Instructions Ordering Provider Order Date Source No Known Medications No known medications Active [facility] [place] Allergies, Adverse Reactions, Alerts Immunizations Immunization Date Given Site Status Last Updated Comments Source No data available for this section No data available for this section [facility] [place], [facility] Results Vital Signs Encounters Location Location Details Encounter Type Encounter Number Reason For Visit Attending Provider ADM Date DC Date Status Source [facility] [place] [facility] [id number] Narendra Virk 08/23/20142014 [facility] [place] [facility] Outpatient [id number] Narendra Virk 08/27/2014 08/27/2014 [facility] [place] [facility] [id number] Narendra Virk 09/03/20142014 [facility] [place] [facility] [id number] Amb Surgery [id number] Julio C Amador 09/11/2014 09/11/2014 Active [facility] [id number] Amb Surgery [id number] Jose Alberto Monchoailyn 10/02/2014 10/02/2014 [facility] [id number] Emergency [id number] Angel Gabriel 10/18/2014 10/18/2014 [facility] [place] [facility] [id number] Narendra Virk 10/18/20142014 [facility] [place] [facility] [place] Cancel/No Show [id number] Alyssia Mccarty 11/04/2014 11/04/2014 [facility] [place] [facility] [place] [facility] [id number] Narendra Virk 12/02/20142014 [facility] [place] [facility] [id number] Clinic ( Outpatient) [id number] Narendra Virk 12/02/2014 Active [facility] [place] [facility] [place] Cancel/No Show [id number] Narendra Virk 12/04/2014 12/02/2014 [facility] [place] [facility] [place] [facility] [id number] Narendra Virk 12/31/20142014 [facility] [place] Procedures Procedure Code Date Perfomer Comments Source Lumbar Steroid Epidural [facility] L-spine surgery - fusion L-4, L-5 09/27/2013 [facility] [place] Heart catheterization with 5 stents placed 09/28/2010 [facility] [place] Heart catheterization with stent placement 05/23/2005 [facility] [place] Cholecystectomy; 61115 1996 [facility] [place] Total abdominal hysterectomy (corpus and cervix), with or without removal of tube(s), with or without removal of ovary(s); [id number] 05/23/1982 [facility] [place] Appendectomy; 82710 1980 [facility] [place] No data available for this section [facility] [place] bilateral CTR [facility] Ligament repair rt leg [facility] Ulnar nerve transpoaition left [facility] Plan of Care Social History Assessment and Plan Family History Value Date Source Advance Directives Order Name Results Value Date Source
[2017-03-01] MEDS ORDERED: NITROGLYCERIN 0.4 MG SL TABS BTL 25'S SL ONE (00:22)
--- OUTSIDE RECORDS SUMMARY | 2017-03-01 00:22 | XMS REPORT ---
Author Author [facility] Address [address] [place] [address] Care Team Providers Care Human Services Program Specialist Name Role Phone JADE FILIBERTO Unavailable PROBLEMS Type Condition ICD9-CM Code [id number] Code Onset Dates Condition Status SNOMED Code Problem Coronary artery disease 414.00 Active 14350734 Problem Hyperlipidemia 272.4 Active 46515193 Problem Osteoporosis M81.0 Active 96856955 Problem Hypertension 401.9 Active 83871339 Problem Lumbar degenerative disc disease M51.36 Active 45154298 Problem Encounter for immunization Z23 Active 603553146 Problem Anxiety F41.9 Active 61179742 Problem Degenerative disc disease, cervical M50.30 Active 92293457 Problem Cellulitis, abdominal wall L03.311 Active 99474162 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 Active 776855788 Problem Chronic fatigue R53.82 Active 00452280 Problem Hyperlipidemia, unspecified E78.5 Active 32565142 Problem Essential (primary) hypertension I10 Active 80395251 Problem Chronic pain G89.29 Active 45436011 Problem Rhinosinusitis J32.9 Active 72748367 Problem Post-menopausal bleeding N95.0 Active 63024959 Problem Leukocytosis, unspecified D72.829 Active 119191234 Problem Seasonal allergic rhinitis due to pollen J30.1 Active 60837693 Problem Hypothyroidism, unspecified E03.9 Active 32250518 Problem Chronic obstructive pulmonary disease, unspecified COPD type J44.9 Active 84974280 Problem Atherosclerotic heart disease of [place] coronary artery without angina pectoris I25.10 Active 788824548672401 Problem Primary insomnia F51.01 Active 0596621 Problem Insomnia, unspecified type G47.00 Active 527753674 Problem Peripheral vascular disease I73.9 Active 672127914 Problem Migraine aura without headache G43.109 Active 311209777 Problem COPD with exacerbation J44.1 Active 035000419 ALLERGIES Substance Reaction Event Type Date Status N.K.D.A. Unknown Non Drug Allergy May, Unknown SOCIAL HISTORY No smoking Hx information available PLAN OF CARE Activity Details Follow Up prn Reason: VITAL SIGNS Height 61 in 2016-05-26 Weight 174.00 lbs 2016-05-26 Temperature 98.3 degrees Fahrenheit 2016-05-26 Heart Rate 76 bpm 2016-05-26 Respiratory Rate 20 2016-05-26 BMI 32.87 kg/m2 2016-05-26 Blood pressure systolic 114 mmHg 2016-05-26 Blood pressure diastolic 58 mmHg 2016-05-26 MEDICATIONS Medication Instructions Dosage Frequency Start Date End Date Duration Status Xanax 0.25 MG Orally Three times a day prn anxiety 1 tablet Mar, Active Isosorbide Mononitrate CR 30MG TAKE ONE TABLET BY MOUTH ONCE DAILY 90 Active Levothyroxine Sodium 125MCG 1 tablet Once a day Orally 30 Active Hydrocodone-Acetaminophen 5-325 MG Orally every 6 hrs 1 tablet as needed 6h Jul, Active Incruse Ellipta 62.5 MCG/INH Inhalation Once a day 1 puff 24h Active Trazodone HCl 50 mg Orally Once a day 0.5-1 tablet at bedtime as needed 24h Active Hydrocodone-Acetaminophen 7.5-325 MG Orally 3 times a day 1 tablet as needed 8h 16 Mar, 2016 Active [place] 3 1000 MG Orally twice a day 1 capsule 12h Active Alendronate Sodium 70 MG Orally Once a week 1 tablet Active Duloxetine HCl 60 mg Orally Once a day 1 capsule 24h Active Calcium 600 MG Orally Twice a day 1 tablet with meals 12h Active Tessalon Perles 100 MG Orally Three times a day 1 capsule as needed 8h May, Active Zyrtec Allergy 10MG as directed 30 Active Duloxetine HCl 60MG TAKE ONE CAPSULE BY MOUTH ONCE DAILY 30 Active Baclofen 10 mg Orally Three times a day 0.5-1 tablet with food or milk 8h 20 Active Crestor 10 MG Orally Once a day 1 tablet 24h 30 days Active Augmentin 875-125 MG Orally every 12 hrs 1 tablet 12h May,May 10 day(s) Active Pantoprazole Sodium 20MG TAKE ONE TABLET BY MOUTH ONCE DAILY 30 Active Levothyroxine Sodium 125 mcg 1 tablet Once a day Orally 30 Active Clopidogrel Bisulfate 75 MG Orally Once a day 1 tablet 24h Active Plavix 75MG TAKE ONE TABLET BY MOUTH ONCE DAILY 90 Active Vitamin D (Cholecalciferol) 400 UNIT Orally Once a day take 1 tablet 24h Active Aspirin 81 MG Orally Once a day 1 tablet 24h Active Topiramate 25MG TAKE ONE TABLET BY MOUTH TWICE DAILY FOR 30 DAYS 30 Active RESULTS Name Result Date Reference Range STREP A (IN HOUSE) 2016-05-26 STREP A Negative Control Valid Lot # [id number] Exp date 11/19/17 PROCEDURES Procedure Date Ordered Related Diagnosis Body Site STREP A ASSAY W/OPTIC May 26, 2016 FOR[facility]LY [facility] VISIT ESTABLISHED PATIENT May 26, 2016 Office Visit, Est Pt., Level 3 May 26, 2016 IMMUNIZATIONS No Known Immunizations
--- OUTSIDE RECORDS SUMMARY | 2017-03-01 00:24 | XMS REPORT ---
Author Author [facility] Address [address] [place] [address] Care Team Providers Care Battery Container Finishing Hand Name Role Phone HECTOR LIEBERMAN Unavailable PROBLEMS Type Condition ICD9-CM Code [id number] Code Onset Dates Condition Status SNOMED Code Problem Coronary artery disease 414.00 Active 71725662 Problem Hyperlipidemia 272.4 Active 56015191 Problem Hypertension 401.9 Active 12940044 Problem Lumbar degenerative disc disease M51.36 Active 94900951 Problem Encounter for immunization Z23 Active 501061557 Problem Anxiety F41.9 Active 59952925 Problem Chronic pain G89.29 Active 54791589 Problem Cellulitis, abdominal wall L03.311 Active 50262459 Problem Post-menopausal bleeding N95.0 Active 94411345 Problem Degenerative disc disease, cervical M50.30 Active 29285103 Problem [facility] current use of anticoagulant Z79.01 Active 142987756 Problem Post menopausal syndrome N95.1 Active 358218316 Problem Atherosclerotic heart disease of [place] coronary artery without angina pectoris I25.10 Active 028932426702540 Problem Hyperlipidemia, unspecified E78.5 Active 02964278 Problem Essential (primary) hypertension I10 Active 37578441 Problem Seasonal allergic rhinitis due to pollen J30.1 Active 59530206 Problem Rhinosinusitis J32.9 Active 83861581 Problem Chronic fatigue R53.82 Active 17122673 Problem Leukocytosis, unspecified D72.829 Active 074653847 Problem Chronic obstructive pulmonary disease, unspecified COPD type J44.9 Active 28457755 Problem Migraine aura without headache G43.109 Active 422228686 Problem Primary insomnia F51.01 Active 0617998 Problem Hypothyroidism, unspecified E03.9 Active 11738718 Problem Peripheral vascular disease I73.9 Active 777176615 Problem Osteoporosis M81.0 Active 20980610 Problem COPD with exacerbation J44.1 Active 197338394 Problem Insomnia, unspecified type G47.00 Active 354346758 ALLERGIES Unknown Allergies SOCIAL HISTORY No smoking Hx information available PLAN OF CARE VITAL SIGNS MEDICATIONS Medication Instructions Dosage Frequency Start Date End Date Duration Status Hydrocodone-Acetaminophen 7.5-325 MG Orally every 6 hrs prn pain 1 tablet as needed Jun, Active RESULTS No Results PROCEDURES No Known procedures IMMUNIZATIONS No Known Immunizations
--- OUTSIDE RECORDS SUMMARY | 2017-03-01 00:24 | XMS REPORT ---
Author Author [facility] Address [address] [place] [address] Care Team Providers Care Steel Chipper Name Role Phone HECTOR LIEBERMAN Unavailable PROBLEMS Type Condition ICD9-CM Code [id number] Code Onset Dates Condition Status SNOMED Code Problem Coronary artery disease 414.00 Active 04286436 Problem Hyperlipidemia 272.4 Active 65445728 Problem Hypertension 401.9 Active 08626100 Problem Lumbar degenerative disc disease M51.36 Active 39042548 Problem Encounter for immunization Z23 Active 381863467 Problem Anxiety F41.9 Active 76155898 Problem Chronic pain G89.29 Active 46986291 Problem Cellulitis, abdominal wall L03.311 Active 62575447 Problem Post-menopausal bleeding N95.0 Active 19769779 Problem Degenerative disc disease, cervical M50.30 Active 15821801 Problem penitentiary current use of anticoagulant Z79.01 Active 519004717 Problem Post menopausal syndrome N95.1 Active 010186154 Problem Atherosclerotic heart disease of [place] coronary artery without angina pectoris I25.10 Active 697526608830685 Problem Hyperlipidemia, unspecified E78.5 Active 54681461 Problem Essential (primary) hypertension I10 Active 27778024 Problem Seasonal allergic rhinitis due to pollen J30.1 Active 16679025 Problem Rhinosinusitis J32.9 Active 08861659 Problem Chronic fatigue R53.82 Active 59752938 Problem Leukocytosis, unspecified D72.829 Active 683203805 Problem Chronic obstructive pulmonary disease, unspecified COPD type J44.9 Active 15874639 Problem Migraine aura without headache G43.109 Active 627969786 Problem Primary insomnia F51.01 Active 0381852 Problem Hypothyroidism, unspecified E03.9 Active 66258971 Problem Peripheral vascular disease I73.9 Active 210071467 Problem Osteoporosis M81.0 Active 56594371 Problem COPD with exacerbation J44.1 Active 644713364 Problem Insomnia, unspecified type G47.00 Active 591596686 ALLERGIES Substance Reaction Event Type Date Status N.K.D.A. Unknown Non Drug Allergy May, Unknown SOCIAL HISTORY No smoking Hx information available PLAN OF CARE Activity Details Follow Up 1 Week Reason:Pap smear results VITAL SIGNS Height 61 in 2016-06-18 Weight 175.6 lbs 2016-06-18 Temperature 98.0 degrees Fahrenheit 2016-06-18 Heart Rate 84 bpm 2016-06-18 Respiratory Rate 20 2016-06-18 BMI 33.18 kg/m2 2016-06-18 Blood pressure systolic 116 mmHg 2016-06-18 Blood pressure diastolic 74 mmHg 2016-06-18 MEDICATIONS Medication Instructions Dosage Frequency Start Date End Date Duration Status Clopidogrel Bisulfate 75 MG Orally Once a day 1 tablet 24h 90 days Active Plavix 75MG TAKE ONE TABLET BY MOUTH ONCE DAILY 90 Active Calcium 600 MG Orally Twice a day 1 tablet with meals 12h Active Nitrostat 0.4 MG Active Topiramate 25MG TAKE ONE TABLET BY MOUTH TWICE DAILY FOR 30 DAYS 30 Active Cymbalta 30 MG Orally once daily in the evening 1 capsule May, 30 day(s) Active Duloxetine HCl 60 mg Orally Once a day 1 capsule 24h 90 days Active Duloxetine HCl 60MG TAKE ONE CAPSULE BY MOUTH ONCE DAILY 30 Active Xanax 0.25 MG Orally Three times a day prn anxiety 1 tablet Mar, Active Isosorbide Mononitrate CR 30MG TAKE ONE TABLET BY MOUTH ONCE DAILY 90 days Active Trazodone HCl 50 mg Orally Once a day at bedtime 1 tablet at bedtime as needed 90 days Active Incruse Ellipta 62.5 MCG/INH Inhalation Once a day 1 puff 24h Feb, 90 days Active Levothyroxine Sodium 125 mcg 1 tablet Once a day Orally 90 days Active Crestor 10MG TAKE ONE TABLET BY MOUTH ONCE DAILY FOR 30 DAYS 30 Active Zyrtec Allergy 10MG as directed Feb, 90 days Active [place] 3 1000 MG Orally twice a day 1 capsule 12h Active Aspirin 81 MG Orally Once a day 1 tablet 24h 90 days Active Crestor 10 MG Orally Once a day 1 tablet 24h 90 days Active Levothyroxine Sodium 125MCG 1 tablet Once a day Orally 30 Active Hydrocodone-Acetaminophen 5-325 MG Orally every 6 hrs 1 tablet as needed 6h Jul, May, 10 days Active Pantoprazole Sodium 20MG TAKE ONE TABLET BY MOUTH ONCE DAILY 90 days Active RESULTS Name Result Date Reference Range PAP TEST, HPV IF ASCUS 2016-06-18 DIAGNOSIS: Specimen adequacy: Clinician provided ICD10: Performed by: . . Note: . PDF Report 2016-06-18 PDF Report1 LCLS PROCEDURES Procedure Date Ordered Related Diagnosis Body Site [facility]IS[facility] NEW PATIENT Jun 18, 2016 SCR PAP SMER;NEW PT OBTAIN PREP&CONVY-LAB Jun 18, 2016 Office Visit, Est Pt., Level 3 Jun 18, 2016 [facility] VIS[facility] ESTABLISHED PATIENT Jun 18, 2016 IMMUNIZATIONS No Known Immunizations
--- OUTSIDE RECORDS SUMMARY | 2017-03-01 00:25 | XMS REPORT ---
Author Author HECTOR LIEBERMAN [facility] Address [address] [place] [address] Care Team Providers Care Financial Project Manager Name Role Phone HECTOR LIEBERMAN Unavailable PROBLEMS Type Condition ICD9-CM Code [id number] Code Onset Dates Condition Status SNOMED Code Problem Coronary artery disease 414.00 Active 51964474 Problem Hyperlipidemia 272.4 Active 02368687 Problem Hypertension 401.9 Active 82279533 Problem Lumbar degenerative disc disease M51.36 Active 99379696 Problem Encounter for immunization Z23 Active 371952338 Problem Anxiety F41.9 Active 63547297 Problem Chronic pain G89.29 Active 29407253 Problem Cellulitis, abdominal wall L03.311 Active 44675940 Problem Post-menopausal bleeding N95.0 Active 32248642 Problem Degenerative disc disease, cervical M50.30 Active 40399020 Problem senior living current use of anticoagulant Z79.01 Active 649513911 Problem Post menopausal syndrome N95.1 Active 785746482 Problem Atherosclerotic heart disease of [place] coronary artery without angina pectoris I25.10 Active 960816930016442 Problem Hyperlipidemia, unspecified E78.5 Active 40852420 Problem Essential (primary) hypertension I10 Active 22491170 Problem Seasonal allergic rhinitis due to pollen J30.1 Active 98650787 Problem Rhinosinusitis J32.9 Active 71051813 Problem Chronic fatigue R53.82 Active 02581360 Problem Leukocytosis, unspecified D72.829 Active 836385188 Problem Chronic obstructive pulmonary disease, unspecified COPD type J44.9 Active 87336112 Problem Migraine aura without headache G43.109 Active 472116755 Problem Primary insomnia F51.01 Active 4005930 Problem Hypothyroidism, unspecified E03.9 Active 54844747 Problem Peripheral vascular disease I73.9 Active 099636370 Problem Osteoporosis M81.0 Active 38036365 Problem COPD with exacerbation J44.1 Active 499033066 Problem Insomnia, unspecified type G47.00 Active 094095753 ALLERGIES Unknown Allergies SOCIAL HISTORY No smoking Hx information available PLAN OF CARE VITAL SIGNS MEDICATIONS Medication Instructions Dosage Frequency Start Date End Date Duration Status Topiramate 25MG Orally 2 times a day TAKE ONE TABLET 12h 90 days Active RESULTS No Results PROCEDURES No Known procedures IMMUNIZATIONS No Known Immunizations
--- OUTSIDE RECORDS SUMMARY | 2017-03-01 00:26 | XMS REPORT ---
Author Author [facility]OR LIEBERMAN [facility] Address [address] [place] [address] Care Team Providers Care Patch Washer Name Role Phone HECTOR LIEBERMAN Unavailable PROBLEMS Type Condition ICD9-CM Code [id number] Code Onset Dates Condition Status SNOMED Code Problem Coronary artery disease 414.00 Active 60032263 Problem Hyperlipidemia 272.4 Active 31062303 Problem Hypertension 401.9 Active 30745968 Problem Encounter for immunization Z23 Active 805027277 Problem Chronic pain G89.29 Active 35710754 Problem Cellulitis, abdominal wall L03.311 Active 09995222 Problem Essential (primary) hypertension I10 Active 81995458 Problem Degenerative disc disease, cervical M50.30 Active 45840686 Problem Hyperlipidemia, unspecified E78.5 Active 44011724 Problem Post-menopausal bleeding N95.0 Active 17520479 Problem Seasonal allergic rhinitis due to pollen J30.1 Active 54809451 Problem Rhinosinusitis J32.9 Active 97218671 Problem COPD exacerbation J44.1 Active 442423236 Problem COPD with acute exacerbation J44.1 Active 589515529 Problem Hypothyroidism, unspecified E03.9 Active 53563569 Problem Primary insomnia F51.01 Active 4733821 Problem Atherosclerotic heart disease of [place] coronary artery without angina pectoris I25.10 Active 844796074820817 Problem Chronic fatigue R53.82 Active 10989940 Problem Leukocytosis, unspecified D72.829 Active 705498462 Problem skilled nursing current use of anticoagulant Z79.01 Active 962175654 Problem Post menopausal syndrome N95.1 Active 156444233 Problem COPD with exacerbation J44.1 Active 628978463 Problem Insomnia, unspecified type G47.00 Active 929059669 Problem Chronic obstructive pulmonary disease, unspecified COPD type J44.9 Active 89308254 Problem Migraine aura without headache G43.109 Active 964151806 Problem Lumbar degenerative disc disease M51.36 Active 40075564 Problem Anxiety F41.9 Active 35955377 Problem Peripheral vascular disease I73.9 Active 091862673 Problem Osteoporosis M81.0 Active 13955527 ALLERGIES No Information SOCIAL HISTORY Never Assessed PLAN OF CARE VITAL SIGNS MEDICATIONS Medication Instructions Dosage Frequency Start Date End Date Duration Status Alprazolam 0.25MG Orally Twice a day 1 tablet 12h 10 Active Hydrocodone-Acetaminophen 7.5-325 MG Orally 3 times a day 1 tablet as needed 8h 16 Mar, 2016 Jul, 10 days Active RESULTS No Results PROCEDURES No Known procedures IMMUNIZATIONS No Known Immunizations MEDICAL (GENERAL) HISTORY Type Description Date Medical History Essential (primary) hypertension Medical History Hyperlipidemia, unspecified Medical History Atherosclerotic heart disease of [place] coronary artery without angina pectoris Medical History Chronic pain Medical History Chronic obstructive pulmonary disease, unspecified COPD type Medical History Hypothyroidism, unspecified Medical History Migraine aura without headache Medical History Primary insomnia Surgical History cardiac stents (has had 2006 [place], 2010 Stents, [address] [facility] stents all together around heart Surgical History hysterectomy- hemorrhaging Surgical History appendectomy Surgical History cholecystectomy Surgical History back surg- fused 2 disc L4L5 2015 Surgical History carpal tunnel release - both hands 10-15 years ago Surgical History tendon repaired Left elbows 2005 Surgical History knee surg R - [place] torn and repaired 1986 Hospitalization History Surgery(s)/Childbirth(s) Hospitalization History dehydration
--- OUTSIDE RECORDS SUMMARY | 2017-03-01 00:28 | XMS REPORT ---
Author Author [facility]OR LIEBERMAN [facility] Address [address] [place] [address] Care Team Providers Care Electroslag Welding Machine Operator Name Role Phone HECTOR LIEBERMAN Unavailable PROBLEMS Type Condition ICD9-CM Code [id number] Code Onset Dates Condition Status SNOMED Code Problem Coronary artery disease 414.00 Active 94373360 Problem Hyperlipidemia 272.4 Active 46278289 Problem Hypertension 401.9 Active 43489616 Problem Encounter for immunization Z23 Active 817101713 Problem Chronic pain G89.29 Active 31151443 Problem Cellulitis, abdominal wall L03.311 Active 99274924 Problem Essential (primary) hypertension I10 Active 83473698 Problem Degenerative disc disease, cervical M50.30 Active 85298787 Problem Hyperlipidemia, unspecified E78.5 Active 26969535 Problem Post-menopausal bleeding N95.0 Active 61370527 Problem Seasonal allergic rhinitis due to pollen J30.1 Active 36954695 Problem Rhinosinusitis J32.9 Active 09386189 Problem COPD exacerbation J44.1 Active 465493981 Problem COPD with acute exacerbation J44.1 Active 845711395 Problem Hypothyroidism, unspecified E03.9 Active 39149594 Problem Primary insomnia F51.01 Active 8163825 Problem Atherosclerotic heart disease of [place] coronary artery without angina pectoris I25.10 Active 623684241977237 Problem Chronic fatigue R53.82 Active 19192492 Problem Leukocytosis, unspecified D72.829 Active 115463446 Problem [facility] current use of anticoagulant Z79.01 Active 632965402 Problem Post menopausal syndrome N95.1 Active 096140288 Problem COPD with exacerbation J44.1 Active 965136995 Problem Insomnia, unspecified type G47.00 Active 295029197 Problem Chronic obstructive pulmonary disease, unspecified COPD type J44.9 Active 97614456 Problem Migraine aura without headache G43.109 Active 854334035 Problem Lumbar degenerative disc disease M51.36 Active 74270064 Problem Anxiety F41.9 Active 56649389 Problem Peripheral vascular disease I73.9 Active 867471196 Problem Osteoporosis M81.0 Active 34769858 ALLERGIES No Information SOCIAL HISTORY Never Assessed PLAN OF CARE VITAL SIGNS MEDICATIONS Medication Instructions Dosage Frequency Start Date End Date Duration Status Alprazolam 0.25MG Orally Twice a day 1 tablet 12h 10 Active Hydrocodone-Acetaminophen 7.5-325 MG Orally 3 times a day 1 tablet as needed 8h 16 Mar, 2016 10 days Active RESULTS No Results PROCEDURES No Known procedures IMMUNIZATIONS No Known Immunizations MEDICAL (GENERAL) HISTORY Type Description Date Medical History Essential (primary) hypertension Medical History Hyperlipidemia, unspecified Medical History Atherosclerotic heart disease of [place] coronary artery without angina pectoris Medical History Chronic pain Medical History Chronic obstructive pulmonary disease, unspecified COPD type Medical History Hypothyroidism, unspecified Medical History Migraine aura without headache Medical History Primary insomnia Surgical History cardiac stents (has had 2006 [place], 2011 Stents, [address] [facility] at [facility] 11 stents all together around [...]
--- OUTSIDE RECORDS SUMMARY | 2017-03-01 00:28 | XMS REPORT ---
Author Author [facility]BER[facility] Address [address] [place] [address] Care Team Providers Care Control Inspector Name Role Phone HECTOR LIEBERMAN Unavailable PROBLEMS Type Condition ICD9-CM Code [id number] Code Onset Dates Condition Status SNOMED Code Problem Coronary artery disease 414.00 Active 82911945 Problem Hyperlipidemia 272.4 Active 83347322 Problem Osteoporosis M81.0 Active 05414401 Problem Hypertension 401.9 Active 23513490 Problem Lumbar degenerative disc disease M51.36 Active 76028960 Problem Encounter for immunization Z23 Active 592675714 Problem Anxiety F41.9 Active 18033352 Problem Degenerative disc disease, cervical M50.30 Active 84947049 Problem Cellulitis, abdominal wall L03.311 Active 38572884 Problem senior care current use of anticoagulant Z79.01 Active 827062541 Problem Chronic fatigue R53.82 Active 40425731 Problem Hyperlipidemia, unspecified E78.5 Active 51217132 Problem Essential (primary) hypertension I10 Active 30534852 Problem Chronic pain G89.29 Active 94160484 Problem Rhinosinusitis J32.9 Active 74032822 Problem Post-menopausal bleeding N95.0 Active 81205964 Problem Leukocytosis, unspecified D72.829 Active 522969699 Problem Seasonal allergic rhinitis due to pollen J30.1 Active 05611777 Problem Hypothyroidism, unspecified E03.9 Active 73902173 Problem Chronic obstructive pulmonary disease, unspecified COPD type J44.9 Active 78739132 Problem Atherosclerotic heart disease of [place] coronary artery without angina pectoris I25.10 Active 833630662226403 Problem Primary insomnia F51.01 Active 7164659 Problem Insomnia, unspecified type G47.00 Active 416927734 Problem Peripheral vascular disease I73.9 Active 534077992 Problem Migraine aura without headache G43.109 Active 413289187 Problem COPD with exacerbation J44.1 Active 526482747 ALLERGIES Unknown Allergies SOCIAL HISTORY No smoking Hx information available PLAN OF CARE VITAL SIGNS MEDICATIONS Medication Instructions Dosage Frequency Start Date End Date Duration Status Hydrocodone-Acetaminophen 5-325 MG Orally every 6 hrs 1 tablet as needed 6h Jul, May, 10 days Active RESULTS No Results PROCEDURES No Known procedures IMMUNIZATIONS No Known Immunizations
--- NOTE | 2017-03-01 00:29 | ED Chest Pain ---
General Chief Complaint: Chest Pain Stated Complaint: CP Source: patient, EMS Exam Limitations: no limitations History of Present Illness Time seen by provider: 00:17 Initial Comments Patient has ER by EMS with a chief complaint that about 10:00 this morning she began to experience some dull chest pain on the left side of her breast bone that radiated towards the back. She thought it was indigestion so she took some indigestion medicines which did not make any difference. Tonight the pain progressively has gotten worse so she called EMS and at that time was advised to take nitroglycerin. This the first time she took nitroglycerin and she says it helped a little bit with her pain go away. She has been out of her aspirin for the past 3 days so EMS gave her 324 mg aspirin to chew up on route and start an IV in her left antecubital space. The patient states she's also been more short of breath today than normal. She does not use oxygen at home. She has not had a cough. She did have some nausea initially but that has resolved at this time. She has a history of [place] in 2004 and at least 10 stents with the latest one in 2014. 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 She has a history of hypothyroidism, hypertension, hypercholesterolemia, but denies diabetes. She still smokes about half a pack a day of cigarettes. She denies alcohol or illicit drug use. Allergies and Home Medications Allergies Coded Allergies: No Known Drug Allergies (Unverified , 11/20/16) Home Medications Alprazolam 0.25 Mg Tablet, 0.25 MG PO TID, (Reported) Aspirin 81 Mg Tab.chew, 81 MG PO DAILY, (Reported) Baclofen 10 Mg Tablet, 10 MG PO TID, (Reported) Benzonatate 100 Mg Capsule, 100 MG PO TID, (Reported) Calcium Carbonate 600 Mg Tablet, 600 MG PO BID, (Reported) Cetirizine HCl 10 Mg Tab.chew, 10 MG PO, (Reported) Clopidogrel Bisulfate 75 Mg Tablet, 75 MG PO DAILY, (Reported) Duloxetine HCl 60 Mg Capsule.dr, 60 MG PO DAILY, (Reported) Duloxetine HCl 30 Mg Capsule.dr, 30 MG PO, (Reported) Hydrocodone/Acetaminophen 1 Each Tablet, 1 EACH PO PRN, (Reported) Isosorbide Mononitrate 30 Mg Tab.er.24h, 30 MG PO DAILY, (Reported) Levothyroxine Sodium 125 Mcg Tablet, 125 MCG PO DAILY, (Reported) Nitroglycerin 0.4 Mg Tab.subl, 0.4 MG SL, (Reported) Pantoprazole Sodium 20 Mg Tablet.dr, 20 MG PO DAILY, (Reported) Rosuvastatin Calcium 10 Mg Tablet, 10 MG PO DAILY, (Reported) Topiramate 25 Mg Tablet, 25 MG PO BID, (Reported) Trazodone HCl 50 Mg Tablet, 50 MG PO HS, (Reported) Umeclidinium Mayer 62.5 Mcg Blst.w.dev, 62.5 MCG IH, (Reported) Review of Systems Constitutional: No chills, No diaphoresis, No fever, No malaise EENTM: No Eye Pain, No Ear Pain Respiratory: Denies Cough, Shortness of Air Cardiovascular: Chest Pain, Denies Edema, Denies Irregular Heart Rate, Denies Palpitations, Denies Syncope Gastrointestinal: Denies Abdomen Distended, Denies Abdominal Pain, Denies Constipated, Denies Diarrhea, Nausea, Denies Vomiting Genitourinary: Denies Burning, Denies Discharge Musculoskeletal: No back pain, No joint pain Skin: No pruritus, No rash Psychiatric/Neurological: Denies Headache, Denies Numbness, Denies Paresthesia Past Gckiaco-Vgeksv-Fawver Hx Patient Social History Alcohol Use: Denies Use Recreational Drug Use: No Smoking Status: Current Everyday Smoker Type Used: Cigarettes 2nd Hand Smoke Exposure: Yes Recent Foreign Travel: No Contact w/Someone Who Travel: No Recent Hopitalizations: No Physical Abuse: No Sexual Abuse: No Seasonal Allergies Seasonal Allergies: Yes Surgeries History of Surgeries: Yes Surgeries: Appendectomy, Gallbladder, Hysterectomy, Orthopedic Respiratory History of Respiratory Disorde: Yes Respiratory Disorders: COPD Cardiovascular History of Cardiac Disorders: Yes (STENT PLACED X11) Cardiac Disorders: Heart Attack, Hypertension Neurological History of Neurological Disord: No Genitourinary History of Genitourinary Disor: No Gastrointestinal History of Gastrointestinal Di: No Musculoskeletal History of Musculoskeletal Dis: No Endocrine History of Endocrine Disorders: No HEENT History of HEENT Disorders: No Cancer History of Cancer: Yes Cancer: Skin Psychosocial History of Psychiatric Problem: No Suicide Risk Score: 0 Integumentary History of Skin or Integumenta: No Blood Transfusions History of Blood Disorders: No Physical Exam Vital Signs Vital Sign - Last 12Hours 03/01/17 00:18 O2 Flow Rate 2.00 FiO2 95 Capillary Refill : Less Than 3 Seconds General Appearance: WD/WN, Mild Distress HEENT: PERRL/EOMI, Pharynx Normal Neck: Full Range of Motion, Normal Inspection, Supple Respiratory: Chest Non Tender, Lungs Clear, Normal Breath Sounds, No Accessory Muscle Use, No Respiratory Distress Cardiovascular: Regular Rate, Rhythm, No Edema, No Gallop, No JVD, No Murmur Gastrointestinal: Normal Bowel Sounds, Non Tender, Soft Extremity: Normal Capillary Refill, Non Tender, No Calf Tenderness, No Pedal Edema Neurologic/Psychiatric: Alert, Oriented x3 Skin: Normal Color, Warm/Dry Progress/Results/Core Measures Results/Orders Lab Results Laboratory Tests Test 03/01/17 00:13 Range/Units White Blood Count 7.9 4.3-11.0 10^3/uL Red Blood Count 4.15 L 4.35-5.85 10^6/uL Hemoglobin 13.4 11.5-16.0 G/DL Hematocrit 41 35-52 % Mean Corpuscular Volume 99 80-99 FL Mean Corpuscular Hemoglobin 32 25-34 PG Mean Corpuscular Hemoglobin Concent 33 32-36 G/DL Red Cell Distribution Width 12.3 10.0-14.5 % Platelet Count 236 130-400 10^3/uL Mean Platelet Volume 12.0 H 7.4-10.4 FL Neutrophils (%) (Auto) 48 42-75 % Lymphocytes (%) (Auto) 40 12-44 % Monocytes (%) (Auto) 9 0-12 % Eosinophils (%) (Auto) 3 0-10 % Basophils (%) (Auto) 0 0-10 % Neutrophils # (Auto) 3.8 1.8-7.8 X 10^3 Lymphocytes # (Auto) 3.2 1.0-4.0 X 10^3 Monocytes # (Auto) 0.7 0.0-1.0 X 10^3 Eosinophils # (Auto) 0.3 0.0-0.3 10^3/uL Basophils # (Auto) 0.0 0.0-0.1 10^3/uL Prothrombin Time 13.4 12.2-14.7 SEC INR Comment 1.0 0.8-1.4 Activated Partial Thromboplast Time 29 24-35 SEC D-Dimer < 0.27 0.00-0.49 UG/ML Sodium Level 145 135-145 MMOL/L Potassium Level 4.1 3.6-5.0 MMOL/L Chloride Level 112 H 98-107 MMOL/L Carbon Dioxide Level 22 21-32 MMOL/L Anion Gap 11 5-14 MMOL/L Blood Urea Nitrogen 12 7-18 MG/DL Creatinine 1.13 0.60-1.30 MG/DL Estimat Glomerular Filtration Rate 49 BUN/Creatinine Ratio 11 Glucose Level 111 H 70-105 MG/DL Calcium Level 9.4 8.5-10.1 MG/DL Magnesium Level 2.5 H 1.8-2.4 MG/DL Total Bilirubin 0.2 0.1-1.0 MG/DL Aspartate Amino Transf (AST/SGOT) 9 5-34 U/L Alanine Aminotransferase (ALT/SGPT) 10 0-55 U/L Alkaline Phosphatase 40 40-136 U/L Myoglobin 38.0 10.0-92.0 NG/ML Troponin I < 0.30 <0.30 NG/ML B-Type Natriuretic Peptide 24.2 <100.0 PG/ML Total Protein 7.0 6.4-8.2 GM/DL Albumin 4.0 3.2-4.5 GM/DL My Orders Orders - BRIAN,MODE J Cbc With Automated Diff (03/01/17) Magnesium (03/01/17) Chest 1 View, Ap/Pa Only (03/01/17) Ekg Tracing (03/01/17) Cardiac Profile 1 (03/01/17) Comprehensive Metabolic Panel (03/01/17) Myoglobin Serum (03/01/17) Protime With Inr (03/01/17) Partial Thromboplastin Time (03/01/17) O2 (03/01/17) Monitor-Rhythm Ecg Trace Only (03/01/17) Lipid Panel (03/02/17 06:00) Rx-Nitroglycerin Sl Tabs (Rx-Nitrostat S (03/01/17 00:30) Saline Lock/Iv-Start (03/01/17) BNP (10/10/17 00:22) Fibrin Degradation Products (03/01/17 00:22) Nitroglycerin 0.4 Mg Btl 25's (Nitrostat (03/01/17 00:22) Acetaminophen Tablet (Tylenol Tablet) (03/01/17 01:30) Medications Given in ED Current Medications Medications Dose Ordered Sig/Jean Route Start Time Stop Time Status Last Admin Dose Admin Nitroglycerin 0.4 mg PRN PRN SL 03/01/17 00:30 03/01/17 00:31 0.4 MG Vital Signs/I&O Vital Sign - Last 12Hours 03/01/17 03/01/17 03/01/17 00:16 00:16 00:18 Temp 96.9 Pulse 88 Resp 20 B/P (MAP) 135/77 Pulse Ox 93 95 O2 Delivery Room Air Room Air Nasal Cannula O2 Flow Rate 2.00 FiO2 95 Progress Note : Time: 00:29 Progress Note High likelihood of angina that has responded now to single dose of nitroglycerin. PE is much less likely as she has some shortness of breath but no cough, leg swelling, tenderness, erythema or recent surgery or immobility. ECG Initial ECG Impression Date: Mar 01, 2017 Initial ECG Impression Time: 00:15 Initial ECG Rate: 84 Initial ECG Rhythm: Normal Sinus Initial ECG Intervals: Normal Initial ECG Impression: Normal, Nonspecific Changes Initial ECG Comparisson: No Previous ECG Available Comment No T-wave elevation or depression Diagnostic Imaging Diagonstic Imaging: Xray Plain Films/CT/US/NM/MRI: chest Comments No acute cardiopulmonary processes noted. Reviewed: Reviewed by Me Departure Communication (Admissions) Time/Spoke to Admitting Phy: 01:[address] Mayes and discussed clinical presentation, imaging, labs and plan to do a cardiac workup overnight to rule out ACS. Contact cardiology in the morning. Impression Impression: Primary Impression: Chest pain Qualified Codes: R07.9 - Chest pain, unspecified Disposition: ADMITTED INPATIENT Condition: Stable Admissions Decision to Admit Reason: Admit from ER (General) Decision to Admit/Date: Mar 01, 2017 Time/Decision to Admit Time: 01:25 Departure-Patient Inst. Referrals: HECTOR LIEBERMAN MD (PCP/Family) Primary Care Physician MODE TORRES Mar 01, 2017 00:29
--- OUTSIDE RECORDS SUMMARY | 2017-03-01 00:29 | XMS REPORT ---
Author Author [facility]ECTOR [facility]BERMAN [facility] Address [address] [place] [address] Care Team Providers Care Change Management Coordinator Name Role Phone HECTOR LIEBERMAN Unavailable PROBLEMS Type Condition ICD9-CM Code QVS11-XV Code Onset Dates Condition Status SNOMED Code Problem Coronary artery disease 414.00 Active 27345938 Problem Hyperlipidemia 272.4 Active 49688205 Problem Hypertension 401.9 Active 19198030 Problem Lumbar degenerative disc disease M51.36 Active 97421188 Problem Encounter for immunization Z23 Active 141367003 Problem Anxiety F41.9 Active 89850630 Problem Chronic pain G89.29 Active 66521609 Problem Cellulitis, abdominal wall L03.311 Active 87761448 Problem Post-menopausal bleeding N95.0 Active 26896503 Problem Degenerative disc disease, cervical M50.30 Active 81684802 Problem penitentiary current use of anticoagulant Z79.01 Active 724624861 Problem Post menopausal syndrome N95.1 Active 931568860 Problem Atherosclerotic heart disease of [place] coronary artery without angina pectoris I25.10 Active 706810435172035 Problem Hyperlipidemia, unspecified E78.5 Active 03109142 Problem Essential (primary) hypertension I10 Active 33306334 Problem Seasonal allergic rhinitis due to pollen J30.1 Active 17451858 Problem Rhinosinusitis J32.9 Active 08354109 Problem Chronic fatigue R53.82 Active 25618231 Problem Leukocytosis, unspecified D72.829 Active 405808795 Problem Chronic obstructive pulmonary disease, unspecified COPD type J44.9 Active 37887886 Problem Migraine aura without headache G43.109 Active 313820959 Problem Primary insomnia F51.01 Active 4884687 Problem Hypothyroidism, unspecified E03.9 Active 02229793 Problem Peripheral vascular disease I73.9 Active 582397816 Problem Osteoporosis M81.0 Active 99277831 Problem COPD with exacerbation J44.1 Active 703658747 Problem Insomnia, unspecified type G47.00 Active 383183136 ALLERGIES Substance Reaction Event Type Date Status N.K.D.A. Unknown Non Drug Allergy Jun, Unknown SOCIAL HISTORY No smoking Hx information available PLAN OF CARE Activity Details Follow Up prn Reason: VITAL SIGNS Height 61 in 2016-06-24 Weight 178.0 lbs 2016-06-24 Temperature 98.0 degrees Fahrenheit 2016-06-24 Heart Rate 86 bpm 2016-06-24 Respiratory Rate 16 2016-06-24 Oximetry 92 % 2016-06-24 BMI 33.63 kg/m2 2016-06-24 Blood pressure systolic 96 mmHg 2016-06-24 Blood pressure diastolic 52 mmHg 2016-06-24 MEDICATIONS Medication Instructions Dosage Frequency Start Date End Date Duration Status Crestor 10 MG Orally Once a day 1 tablet 24h 90 days Active Crestor 10MG TAKE ONE TABLET BY MOUTH ONCE DAILY FOR 30 DAYS 30 Active Tessalon Perles 100 mg Orally Three times a day 1 capsule as needed 8h Jun, Active Aspirin 81 MG Orally Once a day 1 tablet 24h 90 days Active Calcium 600 MG Orally Twice a day 1 tablet with meals 12h Active Proventil HFA 108 (90 Base) MCG/ACT Inhalation every 12 hours prn 2 puffs as needed Jun, Active Zyrtec Allergy 10MG as directed Feb, 90 days Active Xanax 0.25 MG Orally Three times a day prn anxiety 1 tablet Mar, Active Plavix 75MG TAKE ONE TABLET BY MOUTH ONCE DAILY 90 Active Topiramate 25MG Orally 2 times a day TAKE ONE TABLET 12h 90 days Active [place] 3 1000 MG Orally twice a day 1 capsule 12h Active Cymbalta 30 MG Orally once daily in the evening 1 capsule May, 30 day(s) Active Incruse Ellipta 62.5 MCG/INH Inhalation Once a day 1 puff 24h Feb, 90 days Active Levothyroxine Sodium 125 mcg 1 tablet Once a day Orally 90 days Active Pantoprazole Sodium 20MG TAKE ONE TABLET BY MOUTH ONCE DAILY 90 days Active Levothyroxine Sodium 125MCG 1 tablet Once a day Orally 30 Active Tamiflu 75 MG Orally Once a day 1 capsule 24h Jun, 10 days Active Duloxetine HCl 60 mg Orally Once a day 1 capsule 24h 90 days Active Trazodone HCl 50 mg Orally Once a day at bedtime 1 tablet at bedtime as needed 90 days Active Hydrocodone-Acetaminophen 7.5-325 MG Orally every 6 hrs prn pain 1 tablet as needed Jun, Active Duloxetine HCl 60MG TAKE ONE CAPSULE BY MOUTH ONCE DAILY 30 Active Clopidogrel Bisulfate 75 MG Orally Once a day 1 tablet 24h 90 days Active Nitrostat 0.4 MG Active Isosorbide Mononitrate CR 30MG TAKE ONE TABLET BY MOUTH ONCE DAILY 90 days Active RESULTS Name Result Date Reference Range INFLUENZA A & B (IN HOUSE) INFLUENZA A INFLUENZA B Control Valid Lot # [id number] Exp date 06/30/17 PROCEDURES Procedure Date Ordered Related Diagnosis Body Site MEASURE BLOOD OXYGEN LEVEL Jun 24, 2016 INFLUENZA ASSAY W/OPTIC Jun 24, 2016 Office Visit, Est Pt., Level 3 Jun 24, 2016 [facility] VISIT ESTABLISHED PATIENT Jun 24, 2016 IMMUNIZATIONS No Known Immunizations
[2017-03-01] MEDS: RX-NITROGLYCERIN 0.4 MG TAB BTL 25'S SL PRN (00:31)
[2017-03-01 00:34] LABS: BASOPHILS % (AUTO) 0 % (0-10); EOSINOPHILS # (AUTO) 0.3 10^3/uL (0.0-0.3); EOSINOPHILS % (AUTO) 3 % (0-10); LYMPHOCYTES # (AUTO) 3.2 X 10^3 (1.0-4.0); LYMPHOCYTES % (AUTO) 40 % (12-44); MEAN CORPUSCULAR HEMOGLOBIN 32 PG (25-34); MEAN CORPUSCULAR HGB CONC 33 G/DL (32-36); MEAN CORPUSCULAR VOLUME 99 FL (80-99); MONOCYTES # (AUTO) 0.7 X 10^3 (0.0-1.0); MONOCYTES % (AUTO) 9 % (0-12); NEUTROPHILS # (AUTO) 3.8 X 10^3 (1.8-7.8); NEUTROPHILS % (AUTO) 48 % (42-75); PLATELET COUNT 236 10^3/uL (130-400); RED BLOOD COUNT 4.15 10^6/uL (4.35-5.85); RED CELL DISTRIBUTION WIDTH 12.3 % (10.0-14.5); WHITE BLOOD COUNT 7.9 10^3/uL (4.3-11.0)
--- OUTSIDE RECORDS SUMMARY | 2017-03-01 00:36 | XMS REPORT ---
Author Author JANNA MONTAÑOICE [facility] Address [address] [place] [address] Care Team Providers Care Preconstruction Manager Name Role Phone WHITNEY MONTAÑO Unavailable PROBLEMS Type Condition ICD9-CM Code OUA13-WW Code Onset Dates Condition Status SNOMED Code Problem Coronary artery disease 414.00 Active 18436831 Problem Hyperlipidemia 272.4 Active 76462130 Problem Hypertension 401.9 Active 74925579 Problem Encounter for immunization Z23 Active 073750034 Problem Chronic pain G89.29 Active 94047615 Problem Cellulitis, abdominal wall L03.311 Active 48263019 Problem Essential (primary) hypertension I10 Active 71903797 Problem Degenerative disc disease, cervical M50.30 Active 15712426 Problem Hyperlipidemia, unspecified E78.5 Active 82219691 Problem Post-menopausal bleeding N95.0 Active 24073613 Problem Seasonal allergic rhinitis due to pollen J30.1 Active 36404875 Problem Rhinosinusitis J32.9 Active 36553993 Problem COPD exacerbation J44.1 Active 838770773 Problem COPD with acute exacerbation J44.1 Active 410154780 Problem Hypothyroidism, unspecified E03.9 Active 46513047 Problem Primary insomnia F51.01 Active 2432146 Problem Atherosclerotic heart disease of [place] coronary artery without angina pectoris I25.10 Active 611213555189561 Problem Chronic fatigue R53.82 Active 47507117 Problem Leukocytosis, unspecified D72.829 Active 816061167 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.01 Active 536599020 Problem Post menopausal syndrome N95.1 Active 555332254 Problem COPD with exacerbation J44.1 Active 724767219 Problem Insomnia, unspecified type G47.00 Active 024357401 Problem Chronic obstructive pulmonary disease, unspecified COPD type J44.9 Active 81536095 Problem Migraine aura without headache G43.109 Active 463608083 Problem Lumbar degenerative disc disease M51.36 Active 62373998 Problem Anxiety F41.9 Active 48009513 Problem Peripheral vascular disease I73.9 Active 815611465 Problem Osteoporosis M81.0 Active 59019427 ALLERGIES No Known Allergies SOCIAL HISTORY Never Assessed PLAN OF CARE Activity Details Follow Up prn Reason: VITAL SIGNS Height 61 in 2016-07-10 Weight 179.1 lbs 2016-07-10 Temperature 97.9 degrees Fahrenheit 2016-07-10 Heart Rate 66 bpm 2016-07-10 Respiratory Rate 16 2016-07-10 BMI 33.84 kg/m2 2016-07-10 Blood pressure systolic 112 mmHg 2016-07-10 Blood pressure diastolic 64 mmHg 2016-07-10 MEDICATIONS Medication Instructions Dosage Frequency Start Date End Date Duration Status Duloxetine HCl 60 mg Orally Once a day 1 capsule 24h 90 days Active Isosorbide Mononitrate CR 30MG TAKE ONE TABLET BY MOUTH ONCE DAILY 90 days Active Clopidogrel Bisulfate 75 MG Orally Once a day 1 tablet 24h 90 days Active Levothyroxine Sodium 125 mcg 1 tablet Once a day Orally 90 days Active Duloxetine HCl 60MG TAKE ONE CAPSULE BY MOUTH ONCE DAILY 30 Active Xanax 0.25 MG Orally Three times a day prn anxiety 1 tablet Mar, Active Tessalon Perles 100 mg Orally Three times a day 1 capsule as needed 8h Jun, Active Plavix 75MG TAKE ONE TABLET BY MOUTH ONCE DAILY 90 Active [place] 3 1000 MG Orally twice a day 1 capsule 12h Active Nitrostat 0.4 MG Active Cymbalta 30 MG Orally once daily in the evening 1 capsule May, 30 day(s) Active Aspirin 81 MG Orally Once a day 1 tablet 24h 90 days Active Flonase Allergy Relief 50 MCG/ACT Nasally twice per day 1 spray in each nostril Jun, 30 day(s) Active Cetirizine HCl 10 MG Orally Once a day 1 tablet 24h Jul, 30 days Active Calcium 600 MG Orally Twice a day 1 tablet with meals 12h Active Tamiflu 75 MG Orally Once a day 1 capsule 24h Jun, 10 days Active Trazodone HCl 50 mg Orally Once a day at bedtime 1 tablet at bedtime as needed 90 days Active Crestor 10 MG Orally Once a day 1 tablet 24h 90 days Active Levothyroxine Sodium 125MCG 1 tablet Once a day Orally 30 Active Pantoprazole Sodium 20MG TAKE ONE TABLET BY MOUTH ONCE DAILY 90 days Active Hydrocodone-Acetaminophen 7.5-325 MG Orally every 6 hrs prn pain 1 tablet as needed Jun, Active Zyrtec Allergy 10MG as directed Feb, 90 days Active Crestor 10MG TAKE ONE TABLET BY MOUTH ONCE DAILY FOR 30 DAYS 30 Active Topiramate 25MG Orally 2 times a day TAKE ONE TABLET 12h 90 days Active Incruse Ellipta 62.5 MCG/INH Inhalation Once a day 1 puff 24h Feb, 90 days Active Proventil HFA 108 (90 Base) MCG/ACT Inhalation every 12 hours prn 2 puffs as needed Jun, Active RESULTS Name Result Date Reference Range STREP A (IN HOUSE) 2016-07-10 STREP A neg Control valid Lot # [id number] Exp date 02/26/2018 PROCEDURES Procedure Date Ordered Result Body Site STREP A ASSAY W/OPTIC Jul 10, 2016 [facility] VISIT ESTABLISHED PATIENT Jul 10, 2016 IMMUNIZATIONS No Known Immunizations MEDICAL (GENERAL) HISTORY Type Description Date Medical History Essential (primary) hypertension Medical History Hyperlipidemia, unspecified Medical History Atherosclerotic heart disease of [place] coronary artery without angina pectoris Medical History Chronic pain Medical History Chronic obstructive pulmonary disease, unspecified COPD type Medical History Hypothyroidism, unspecified Medical History Migraine aura without headache Medical History Primary insomnia Surgical History cardiac stents (has had 2006 [place], 2011 Stents, [address] Duque at [...]
--- OUTSIDE RECORDS SUMMARY | 2017-03-01 00:36 | XMS REPORT ---
Author Author [facility] Address [address] [place] [address] Care Team Providers Care Chief Mechanical Engineer Name Role Phone HECTOR LIEBERMAN Unavailable PROBLEMS Type Condition ICD9-CM Code [id number] Code Onset Dates Condition Status SNOMED Code Problem Coronary artery disease 414.00 Active 63635219 Problem Hyperlipidemia 272.4 Active 26073874 Problem Hypertension 401.9 Active 16102387 Problem Encounter for immunization Z23 Active 693434165 Problem Chronic pain G89.29 Active 55835147 Problem Cellulitis, abdominal wall L03.311 Active 93812313 Problem Essential (primary) hypertension I10 Active 52131268 Problem Degenerative disc disease, cervical M50.30 Active 99473865 Problem Hyperlipidemia, unspecified E78.5 Active 21842647 Problem Post-menopausal bleeding N95.0 Active 66762904 Problem Seasonal allergic rhinitis due to pollen J30.1 Active 59382351 Problem Rhinosinusitis J32.9 Active 87604813 Problem COPD exacerbation J44.1 Active 275025625 Problem COPD with acute exacerbation J44.1 Active 590665651 Problem Hypothyroidism, unspecified E03.9 Active 26316058 Problem Primary insomnia F51.01 Active 9970328 Problem Atherosclerotic heart disease of [place] coronary artery without angina pectoris I25.10 Active [id number] Problem Chronic fatigue R53.82 Active 92335403 Problem Leukocytosis, unspecified D72.829 Active 666570185 Problem 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 Z79.01 Active 020435222 Problem Post menopausal syndrome N95.1 Active 567351973 Problem COPD with exacerbation J44.1 Active 960161299 Problem Insomnia, unspecified type G47.00 Active 581873003 Problem Chronic obstructive pulmonary disease, unspecified COPD type J44.9 Active 48595200 Problem Migraine aura without headache G43.109 Active 064769715 Problem Lumbar degenerative disc disease M51.36 Active 78414941 Problem Anxiety F41.9 Active 97844159 Problem Peripheral vascular disease I73.9 Active 227589782 Problem Osteoporosis M81.0 Active 84290007 ALLERGIES No Known Allergies SOCIAL HISTORY Never Assessed PLAN OF CARE Activity Details Follow Up prn Reason: VITAL SIGNS Height 61 in 2016-07-15 Weight 177.4 lbs 2016-07-15 Temperature 98.0 degrees Fahrenheit 2016-07-15 Heart Rate 86 bpm 2016-07-15 Respiratory Rate 18 2016-07-15 Oximetry 94 % 2016-07-15 BMI 33.52 kg/m2 2016-07-15 Blood pressure systolic 120 mmHg 2016-07-15 Blood pressure diastolic 60 mmHg 2016-07-15 MEDICATIONS Medication Instructions Dosage Frequency Start Date End Date Duration Status Baclofen 10MG Orally Three times a day 0.5-1 tablet with food or milk 8h 20 Active Incruse Ellipta 62.5 MCG/INH Inhalation Once a day 1 puff 24h Feb, 90 days Active Cymbalta 30 MG Orally once daily in the evening 1 capsule May, 30 day(s) Active Levothyroxine Sodium 125MCG 1 tablet Once a day Orally 30 Active Isosorbide Mononitrate CR 30MG TAKE ONE TABLET BY MOUTH ONCE DAILY 90 days Active [place] 3 1000 MG Orally twice a day 1 capsule 12h Active Xanax 0.25 MG Orally Three times a day prn anxiety 1 tablet Mar, Active Tamiflu 75 MG Orally Once a day 1 capsule 24h Jun, 10 days Active Calcium 600 MG Orally Twice a day 1 tablet with meals 12h Active Duloxetine HCl 60MG TAKE ONE CAPSULE BY MOUTH ONCE DAILY 30 Active Nitrostat 0.4 MG Active Pantoprazole Sodium 20MG TAKE ONE TABLET BY MOUTH ONCE DAILY 90 days Active Hydrocodone-Acetaminophen 7.5-325 MG Orally 3 times a day 1 tablet as needed 8h Mar, Active Aspirin 81 MG Orally Once a day 1 tablet 24h 90 days Active Clopidogrel Bisulfate 75 MG Orally Once a day 1 tablet 24h 90 days Active Plavix 75MG TAKE ONE TABLET BY MOUTH ONCE DAILY 90 Active Flonase Allergy Relief 50 MCG/ACT Nasally twice per day 1 spray in each nostril Jun, 30 day(s) Active Trazodone HCl 50 mg Orally Once a day at bedtime 1 tablet at bedtime as needed 90 days Active Levothyroxine Sodium 125 mcg 1 tablet Once a day Orally 90 days Active Crestor 10MG TAKE ONE TABLET BY MOUTH ONCE DAILY FOR 30 DAYS 30 Active Zyrtec Allergy 10MG as directed Feb, 90 days Active Proventil HFA 108 (90 Base) MCG/ACT Inhalation every 12 hours prn 2 puffs as needed Jun, Active Topiramate 25MG Orally 2 times a day TAKE ONE TABLET 12h 90 days Active Duloxetine HCl 60 mg Orally Once a day 1 capsule 24h 90 days Active Tessalon Perles 100 mg Orally Three times a day 1 capsule as needed 8h Jun, Active Crestor 10 MG Orally Once a day 1 tablet 24h 90 days Active Cetirizine HCl 10 MG Orally Once a day 1 tablet 24h Jul, 30 days Active Hydrocodone-Acetaminophen 7.5-325 MG Orally every 6 hrs prn pain 1 tablet as needed Jun, Active RESULTS No Results PROCEDURES Procedure Date Ordered Result Body Site CERUMEN REMOVAL 2016-07-15 Normal MEASURE BLOOD OXYGEN LEVEL Jul 15, 2016 [facility] VISIT ESTABLISHED PATIENT Jul 15, 2016 EAR IRRIGATION Jul 15, 2016 IMMUNIZATIONS No Known Immunizations MEDICAL (GENERAL) HISTORY Type Description Date Medical History Essential (primary) hypertension Medical History Hyperlipidemia, unspecified Medical History Atherosclerotic heart disease of [place] coronary artery without angina pectoris Medical History Chronic pain Medical History Chronic obstructive pulmonary disease, unspecified COPD type Medical History Hypothyroidism, unspecified Medical History Migraine aura without headache Medical History Primary insomnia Surgical History cardiac stents (has had 2006 NM, 2010 Stents, [address] [facility] [...]
[2017-03-01 00:39] LABS: PROTHROMBIN TIME PATIENT 13.4 SEC (12.2-14.7)
[2017-03-01 00:48] LABS: ALANINE AMINOTRANSFERASE 10 U/L (0-55); ANION GAP 11 MMOL/L (5-14); ASPARTATE AMINO TRANSFERASE 9 U/L (5-34); BILIRUBIN,TOTAL 0.2 MG/DL (0.1-1.0); BLOOD UREA NITROGEN 12 MG/DL (7-18); BUN/CREATININE RATIO 11; CALCIUM 9.4 MG/DL (8.5-10.1); CARBON DIOXIDE 22 MMOL/L (21-32); CHLORIDE 112 MMOL/L (98-107); CREATININE SERUM 1.13 MG/DL (0.60-1.30); GFR ESTIMATED 49; GLUCOSE 111 MG/DL (70-105); MAGNESIUM 2.5 MG/DL (1.8-2.4); POTASSIUM 4.1 MMOL/L (3.6-5.0); SODIUM 145 MMOL/L (135-145)
[2017-03-01] MEDS ORDERED: ACETAMINOPHEN 500 MG TAB (TYLENOL) PO ONE (01:30)
[2017-03-01] MEDS ORDERED: ACETAMINOPHEN 500 MG TAB (TYLENOL) PO PRN (02:30)
[2017-03-01] MEDS ORDERED: NITROGLYCERIN 0.4 MG SL TABS BTL 25'S SL PRN (02:30)
[2017-03-01] MEDS ORDERED: ONDANSETRON 4 MG/2 ML (SDV) Z0FRAN IV PRN (02:30)
[2017-03-01] MEDS ORDERED: morphine INJ 4 MG/ML 1 ML (VIAL/SYRINGE) IV PRN (02:30)
--- NOTE | 2017-03-01 05:57 | Diagnostic Imaging Report ---
INDICATION: Chest pain. COMPARISON: None FINDINGS: Single frontal view of the chest demonstrates normal heart size and pulmonary vascularity. Evaluation of the lungs demonstrate small micronodular density within the left upper lung field. Otherwise, lungs are clear. No large pleural effusion or pneumothorax is seen. The visualized osseous structures show no acute abnormalities. IMPRESSION: 1. No evidence of failure or focal infiltrate. 2. Small micronodular density within the left upper lung field. Correlation CT chest is recommended and could be performed on a nonemergent basis. Dictated by: Dictated on workstation # [id number]
[2017-03-01] MEDS ORDERED: LEVOTHYROXINE 125 MCG (LEVOTHROID) TABLET PO SCH ×2 (06:30→10:04)
[2017-03-01] MEDS ORDERED: ISOSORBIDE MONONITRATE 30 MG (IMDUR) TAB PO SCH (06:30)
[2017-03-01 06:35] LABS: BASOPHILS % (AUTO) 0 % (0-10); EOSINOPHILS # (AUTO) 0.2 10^3/uL (0.0-0.3); EOSINOPHILS % (AUTO) 3 % (0-10); LYMPHOCYTES # (AUTO) 2.9 X 10^3 (1.0-4.0); LYMPHOCYTES % (AUTO) 40 % (12-44); MEAN CORPUSCULAR HEMOGLOBIN 32 PG (25-34); MEAN CORPUSCULAR HGB CONC 33 G/DL (32-36); MEAN CORPUSCULAR VOLUME 99 FL (80-99); MEAN PLATELET VOLUME 11.8 FL (7.4-10.4); MONOCYTES % (AUTO) 14 % (0-12); NEUTROPHILS # (AUTO) 3.2 X 10^3 (1.8-7.8); NEUTROPHILS % (AUTO) 43 % (42-75); PLATELET COUNT 225 10^3/uL (130-400); RED BLOOD COUNT 4.08 10^6/uL (4.35-5.85); RED CELL DISTRIBUTION WIDTH 12.3 % (10.0-14.5); WHITE BLOOD COUNT 7.4 10^3/uL (4.3-11.0)
[2017-03-01] MEDS ORDERED: PANTOPRAZOLE 20 MG TABLET (PROTONIX) PO SCH (07:00)
[2017-03-01 07:05] LABS: ANION GAP 8 MMOL/L (5-14); BLOOD UREA NITROGEN 12 MG/DL (7-18); BUN/CREATININE RATIO 13; CARBON DIOXIDE 21 MMOL/L (21-32); CHLORIDE 115 MMOL/L (98-107); CHOLESTEROL 124 MG/DL (< 200); CREATININE SERUM 0.92 MG/DL (0.60-1.30); DIRECT LDL 54 MG/DL (1-129); GFR ESTIMATED > 60; GLUCOSE 106 MG/DL (70-105); POTASSIUM 3.9 MMOL/L (3.6-5.0); SODIUM 144 MMOL/L (135-145); TRIGLYCERIDES 64 MG/DL (<150); VLDL CHOLESTEROL 13 MG/DL (5-40)
[2017-03-01 07:11] LABS: TROPONIN I < 0.30 NG/ML (<0.30)
--- NOTE | 2017-03-01 08:26 | Consultation-Cardiology ---
HPI-Cardiology Cardiology Consultation Date of Consultation 03/01/17 Date of Admission Time Seen by Provider: 08:20 Indication: Chest pain, CAD HPI Patient is a 61 y/o female with history of CAD, HTN, HLP, tobaccoism. Primary tailer off is Dr. Bhat in [place], [place]. Reports she has hx of NM in 2004 and has had a total of 10 stents. Last cardiac cath reported to be in 2014. Was in her usual state of health until she began having chest pain yesterday morning. Describes pain as dull in nature, rated 4/10. Pain was intermittent throughout the entire day, therefore she presented to the ER. Received SL nitro which improved her symptoms. Reports episode of CP earlier this morning, lasting approx 5 min. Currently is pain free. Reports associated dyspnea and dizziness with episodes. 61 years old lady with extensive history of coronary artery disease, hypertension, tobaccoism, had multiple intervention the past, admitted with unstable angina. Described it as dull achiness in the retrosternal area intermittent profile the day, came into the emergency room and received sublingual nitroglycerin, this morning she had another episode of chest pain responded to nitroglycerin, still having mild chest discomfort. Had a borderline stress test Home Medications & Allergies Allergies: Coded Allergies: No Known Drug Allergies (Unverified , 11/20/16) Home Medication List Reviewed: Yes CVS-Mrbdlj-Qtofra Hx Patient Social History Alcohol Use: Denies Use Recreational Drug Use: No Smoking Status: Current Everyday Smoker Type Used: Cigarettes 2nd Hand Smoke Exposure: Yes Recent Foreign Travel: No Recent Infectious Disease Expo: No Recent Hopitalizations: No Physical Abuse Screen: No Sexual Abuse: No Immunizations Up To Date Date of Pneumonia Vaccine: May 23, 2011 Past Medical History CAD, HTN, HLP, Tobaccoism, Hypothyroidism Family Medical History Family History: Asthma 19 FATHER Cardiovascular disease 19 MOTHER G8 BROTHER Diabetes mellitus G8 SISTER FH: CABG (coronary artery bypass surgery) G8 BROTHER FH: aneurysm 19 MOTHER FH: emphysema 19 FATHER FH: lung cancer G8 BROTHER FH: throat cancer G8 BROTHER Constitutional: No chills, No diaphoresis, dizziness, No fever, No malaise, No weakness EENTM: No blurred vision, No vision loss, No epistaxis, No throat pain Respiratory: No cough, No dyspnea on exertion, short of breath Cardiovascular: chest pain, No edema, Hx of Intervention, No palpitations, No syncope, vascular heart diseas Gastrointestinal: No abdominal pain, No constipation, No diarrhea Genitourinary: No dysuria, No frequency Musculoskeletal: No back pain, No joint pain Psychiatric/Neurological: Denies Anxiety, Denies Depressed Reviewed Test Results Reviewed Test Results Lab Laboratory Tests 03/01/17 00:13: White Blood Count 7.9, Red Blood Count 4.15L, Hemoglobin 13.4, Hematocrit 41, Mean Corpuscular Volume 99, Mean Corpuscular Hemoglobin 32, Mean Corpuscular Hemoglobin Concent 33, Red Cell Distribution Width 12.3, Platelet Count 236, Mean Platelet Volume 12.0H, Neutrophils (%) (Auto) 48, Lymphocytes (%) (Auto) 40 , Monocytes (%) (Auto) 9, Eosinophils (%) (Auto) 3, Basophils (%) (Auto) 0, Neutrophils # (Auto) 3.8, Lymphocytes # (Auto) 3.2, Monocytes # (Auto) 0.7, Eosinophils # (Auto) 0.3, Basophils # (Auto) 0.0, Prothrombin Time 13.4, INR Comment 1.0, Activated Partial Thromboplast Time 29, D-Dimer < 0.27, Sodium Level 145, Potassium Level 4.1, Chloride Level 112H, Carbon Dioxide Level 22, Anion Gap 11, Blood Urea Nitrogen 12, Creatinine 1.13, Estimat Glomerular Filtration Rate 49, BUN/Creatinine Ratio 11, Glucose Level 111H, Calcium Level 9.4, Magnesium Level 2.5H, Total Bilirubin 0.2, Aspartate Amino Transf (AST/SGOT ) 9, Alanine Aminotransferase (ALT/SGPT) 10, Alkaline Phosphatase 40, Myoglobin 38.0, Troponin I < 0.30, B-Type Natriuretic Peptide 24.2, Total Protein 7.0, Albumin 4.0 03/01/17 06:12: White Blood Count 7.4, Red Blood Count 4.08L, Hemoglobin 13.2, Hematocrit 40, Mean Corpuscular Volume 99, Mean Corpuscular Hemoglobin 32, Mean Corpuscular Hemoglobin Concent 33, Red Cell Distribution Width 12.3, Platelet Count 225, Mean Platelet Volume 11.8H, Neutrophils (%) (Auto) 43, Lymphocytes (%) (Auto) 40 , Monocytes (%) (Auto) 14H, Eosinophils (%) (Auto) 3, Basophils (%) (Auto) 0, Neutrophils # (Auto) 3.2, Lymphocytes # (Auto) 2.9, Monocytes # (Auto) 1.0, Eosinophils # (Auto) 0.2, Basophils # (Auto) 0.0, Sodium Level 144, Potassium Level 3.9, Chloride Level 115H, Carbon Dioxide Level 21, Anion Gap 8, Blood Urea Nitrogen 12, Creatinine 0.92, Estimat Glomerular Filtration Rate > 60, BUN/ Creatinine Ratio 13, Glucose Level 106H, Calcium Level 9.0, Troponin I < 0.30, Triglycerides Level 64, Cholesterol Level 124, LDL Cholesterol Direct 54, VLDL Cholesterol 13, HDL Cholesterol 50 ECG Impression ECG Initial ECG Rhythm: Normal Sinus Physical Exam Vital Signs Vital Sign - Last 12Hours 03/01/17 00:18 O2 Flow Rate 2.00 FiO2 95 Capillary Refill : Less Than 3 Seconds General Appearance: No Apparent Distress, WD/WN HEENT: PERRL/EOMI, TMs Normal, Normal ENT Inspection, Pharynx Normal Neck: Full Range of Motion, Normal Inspection, Non Tender, Supple, No Carotid Bruit Respiratory: Chest Non Tender, No Accessory Muscle Use, No Respiratory Distress , Decreased Breath Sounds, Wheezing Cardiovascular: Regular Rate, Rhythm, No Edema, No Gallop, No JVD, No Murmur, Normal Peripheral Pulses Gastrointestinal: No Pulsatile Mass, Non Tender, Soft Rectal: Deferred Back: No CVA Tenderness Extremity: Non Tender, No Calf Tenderness Neurologic/Psychiatric: Alert, Oriented x3, 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 Cardiac enzymes negative. Has significant hx CAD. Reports last stress test 2016, done in [place]. received nitroglycerin this morning prior to the stress test, during the stress test she did not have any chest pain, had no significant ischemia, TID value mildly increased, discussed with her the management plan, she is fairly anxious about her condition due to the current episode of chest pain, discussed the possible to discharging her and follow-up as an outpatient, patient is anxious and inquiring about having a cardiac catheterization and evaluating her coronaries due to the recurrent episode of chest pain that responded to nitroglycerin. I'll proceed with the procedure today. (2) CAD (coronary artery disease) Qualifiers: Status: Chronic Permanent Comment: Reported hx of NM in 2004 with total of 10 stents placed. Most recent cath/stent placement 2014. Primary tailer off is Dr. Bhat in [place]. Last Edited By: Pam Milligan on Mar 01, 2017 10:11 (3) HTN (hypertension) Qualifiers: Qualified Codes: I10 - Essential (primary) hypertension Status: Chronic Permanent Comment: Last Edited By: Pam Milligan on Mar 01, 2017 10:11 (4) Hyperlipidemia Qualifiers: Qualified Codes: E78.2 - Mixed hyperlipidemia Status: Chronic Permanent Comment: Last Edited By: Pam Milligan on Mar 01, 2017 10:12 (5) Tobacco abuse Status: Chronic Permanent Comment: discussed the importance of smoking cessation. Last Edited By: Yanet Esqueda on Mar 01, 2017 08:31 (6) Hypothyroidism Qualifiers: Qualified Codes: E03.9 - Hypothyroidism, unspecified Status: Chronic Permanent Comment: Last Edited By: Pam Milligan on Mar 01, 2017 10:12 Assessment/Plan Will keep patient NPO. Planning for LST later today. Thank you for allowing us to participate in the management of Ms. Bello. This is Yanet Esqueda PA-C, as a scribe for Dr. Tavares. This is Dr. Tavares, I have seen and evaluated the patient with Yanet, I agree with the current note, I performed physical examination, lung examination was clear to auscultation bilateral, heart is regular rate and rhythm, patient had unstable angina responsive to nitroglycerin with accelerating angina, stress test is borderline with transient ischemic dilatation, received nitroglycerin earlier this morning prior to the stress test. Discussed the management plan, patient preferred cardiac catheterization due to her extensive history and her classic symptoms. I will proceed with left heart catheterization possible PTCA. I reviewed the note and made a few minor modification and used Italic Font Clinical Quality Measures AMI/AHF: ASA po Prior to arrival: Yes (324 mg) DVT/VTE Risk/Contraindication: Risk Factor Score Per Nursin RFS Level Per Nursing on Admit: 4+=Very High YANET MOON Mar 01, 2017 08:26 JACKELINE TAVARES MD Mar 01, 2017 15:19
[2017-03-01] MEDS ORDERED: lisINopril 5 MG (PRINIVIL) TABLET PO SCH (09:00)
[2017-03-01] MEDS ORDERED: toPIRamate 25 MG (TOPAMAX) TAB PO SCH (09:00)
[2017-03-01] MEDS ORDERED: CLOPIDOGREL 75 MG (PLAVIX) TABLET PO SCH (09:00)
[2017-03-01] MEDS ORDERED: ASPIRIN E.C. 325 MG (ECOTRIN) TABLET PO SCH (09:00)
[2017-03-01] MEDS ORDERED: DULoxetine 30 MG (CYMBALTA) CAP PO SCH ×2 (09:00→09:49)
[2017-03-01] MEDS ORDERED: PATIENT MAY USE OWN MEDS, ALL MC SCH (09:45)
[2017-03-01] MEDS: toPIRamate 25 MG (TOPAMAX) TAB PO SCH ×2 (10:10→20:59)
--- NOTE | 2017-03-01 10:10 | History & Physical-Hospitalist ---
HPI History of Present Illness: HPI/Chief Complaint CC: Chest pain HPI: Pt is a 61yoCF with a PMh of HTN, RI in 2004, CAD s/p 10-11 stents, and hypothyroidism who presented to the ER last night with complaints of chest pain. She reports it started at 10am yesterday and she thought it was indigestion at first but continued to worse throughout the day. Last night her pain much worse and was substernal. She developed SOB, nausea, diaphoresis along with her pain and it began to radiate to her left arm and through her back. She thought it felt like the pain she had when she had an RI in 2004 so she presented to the ER for evaluation. She reports she was at rest when this occurred. She denies any current SOB, fever, chills. She does complain of a cough that she reports in chronic due to her smoking. Source: patient Exam Limitations: no limitations Date Seen 03/01/17 Time Seen by Provider: 09:55 Attending Physician Cisco Mayes MD PCP Stan Min MD Referring Physician Date of Admission Mar 01, 2017 at 01:30 Home Medications & Allergies Home Medications Reviewed patient Home Medication Reconciliation Form Allergies Allergies Coded Allergies No Known Drug Allergies (Unverified11/20/16) Past Bzfiays-Cttwyj-Hqwzvc Hx Patient Social History Alcohol Use: Denies Use Recreational Drug Use: No Smoking Status: Current Everyday Smoker Type Used: Cigarettes 2nd Hand Smoke Exposure: Yes Physical Abuse Screen: No Sexual Abuse: No Recent Foreign Travel: No Contact w/other who traveled: No Recent Hopitalizations: No Recent Infectious Disease Expo: No Immunizations Up To Date Date of Pneumonia Vaccine: May 23, 2011 Seasonal Allergies Seasonal Allergies: No Surgeries Yes (CARDIAC STENTS) Appendectomy, Gallbladder, Hysterectomy Respiratory Yes Currently Using CPAP: No Cardiovascular Yes Coronary Artery Disease, Heart Attack, Hypertension Neurological No Genitourinary No Gastrointestinal Yes Gastroesophageal Reflux Musculoskeletal No Endocrine History of Endocrine Disorders: Yes Endocrine Disorders: Hypothyroidsim HEENT History of HEENT Disorders: Yes HEENT Disorders: Cataract Cancer Yes Skin Psychosocial History of Psychiatric Problem: Yes Behavioral Health Disorders: Anxiety, Depression Integumentary History of Skin or Integumenta: No Blood Transfusions History of Blood Disorders: No Adverse Reaction to a Blood Tr: No Family Medical History Family Hx: Asthma 19 FATHER Cardiovascular disease 19 MOTHER G8 BROTHER Diabetes mellitus G8 SISTER FH: CABG (coronary artery bypass surgery) G8 BROTHER FH: aneurysm 19 MOTHER FH: emphysema 19 FATHER FH: lung cancer G8 BROTHER FH: throat cancer G8 BROTHER Review of Systems Constitutional: No chills, diaphoresis, No fever EENTM: No blurred vision, No double vision, No throat pain Respiratory: cough, No dyspnea on exertion, No orthopnea, No short of breath Cardiovascular: see HPI, chest pain, No edema, No palpitations Gastrointestinal: No abdominal pain, No constipation, No diarrhea, No nausea, No vomiting Genitourinary: No dysuria, No frequency Musculoskeletal: No joint pain, No muscle pain Skin: No lesions, No rash Psychiatric/Neurological: Denies Headache, Denies Numbness, Denies Tingling Physical Exam Physical Exam Vital Signs Vital Sign - Last 12Hours 03/01/17 00:18 O2 Flow Rate 2.00 FiO2 95 Capillary Refill : Less Than 3 Seconds General Appearance: No Apparent Distress, WD/WN HEENT: PERRL/EOMI, Moist Mucous Membranes Neck: Supple, No JVD Respiratory: Lungs Clear, No Respiratory Distress Cardiovascular: Regular Rate, Rhythm, No Murmur, Normal Peripheral Pulses Gastrointestinal: Normal Bowel Sounds, Non Tender, Soft Extremity: Normal Capillary Refill, No Calf Tenderness, No Pedal Edema Neurologic/Psychiatric: Alert, Oriented x3, Normal Mood/Affect Skin: Normal Color, Warm/Dry Results Results/Procedures Lab Laboratory Tests 03/01/17 00:13 03/01/17 06:12 Assessment/Plan Admission Diagnosis Angina Diagnosis/Problems Diagnosis/Problems (1) Chest pain Status: Acute Assessment & Plan: Concerning for unstable angina Cardiology consulted, appreciate recs Stress test today ASA Nitro prn chest pain Telemetry Qualifiers: (2) CAD (coronary artery disease) Status: Chronic Permanent Comment: Reported hx of RI in 2004 with total of 10 stents placed. Most recent cath/stent placement 2014. Primary ski lift mechanic is Dr. Bhat in [place]. Last Edited By: Jordi Milligan on Mar 01, 2017 10:11 Assessment & Plan: Plavix and ASA Cardiology consulted Qualifiers: (3) HTN (hypertension) Status: Chronic Permanent Comment: Last Edited By: Jordi Milligan on Mar 01, 2017 10:11 Assessment & Plan: Well controlled, hold home meds Qualifiers: Qualified Codes: I10 - Essential (primary) hypertension (4) Hyperlipidemia Status: Chronic Permanent Comment: Last Edited By: Jordi Milligan on Mar 01, 2017 10:12 Assessment & Plan: Continue statin Check lipid panel Qualifiers: Qualified Codes: E78.2 - Mixed hyperlipidemia (5) Tobacco abuse Status: Chronic Permanent Comment: discussed the importance of smoking cessation. Last Edited By: Yanet Esqueda on Mar 01, 2017 08:31 (6) Hypothyroidism Status: Chronic Permanent Comment: Last Edited By: Jordi Milligan on Mar 01, 2017 10:12 Assessment & Plan: Continue Synthroid Qualifiers: Qualified Codes: E03.9 - Hypothyroidism, unspecified (7) Prophylactic measure Assessment & Plan: Lovenox NPO Saline Lock Clinical Quality Measures AMI/AHF: ASA po Prior to arrival: Yes (324 mg) DVT/VTE Risk/Contraindication: Risk Factor Score Per Nursin RFS Level Per Nursing on Admit: 4+=Very High JORDI MILLIGAN MD Mar 01, 2017 10:10
[2017-03-01] MEDS: meTOprolol TARTRATE 25 MG (LOPRESSOR) TABLET PO SCH ×2 (10:14→20:58)
[2017-03-01] MEDS ORDERED: REGADENOSON 0.4 MG/5 ML SYR (LEXISCAN) IV ONE ×2 (12:43→13:00)
[2017-03-01] MEDS ORDERED: HEParin (CATH LAB) 2,000 ML IV ONE (15:20)
--- NOTE | 2017-03-01 15:20 | Cardiac Procedure Note-CS/ASA ---
Pre-Procedure Note Pre-Op Procedure Note H&P Reviewed The H&P was reviewed, patient examined and no changes noted. Date H&P Reviewed: Mar 01, 2017 Time H&P Reviewed: 15:20 Conscious Sedation Pre-Proced Time Reviewed: 15:20 ASA Class: 3 Airway Mallampati Classification: ([place] appropriate class) I. II. III, IV Lungs Heart ASA score ASA 1: a normal healthy patient ASA 2: a patient with a mild systemic disease (mid diabetes, controlled hypertension, obesity x ASA 3: a patient with a severe systemic disease that limits activity (angina , COPD, prior Myocardial infarction) ASA 4: a patient with an incapacitating disease that is a constant threat to life (CHF, renal failure) ASA 5: a moribund patient not expected to survive 24 hrs. (ruptured aneurysm) ASA 6: a declared brain patient whose organs are being harvested. For emergent operations, add the letter E after the classification Grade 3 Sedation Plan: Analgesia, Amnesia, Plan communicated to team members, Discussed options with patient/fam, Discussed risks with patient/fam Note The patient is an appropriate candidate to undergo the planned procedure, sedation, and anesthesia. The patient immediately re-assessed prior to indication. JACKELINE BERMUDEZ MD Mar 01, 2017 15:20
[2017-03-01] MEDS ORDERED: MIDAZOLAM 5 MG/5 ML (VERSED) VIAL ONE (15:28)
[2017-03-01] MEDS ORDERED: fentaNYL INJECTION 100 MCG/2 ML AMP ONE (15:28)
[2017-03-01] MEDS ORDERED: NS IV 1000 ML 1,000 ML IV SCH ×2 (15:30→16:32)
[2017-03-01] MEDS ORDERED: METO-333 PO ×2 (16:34)
[2017-03-01] MEDS ORDERED: LISI-556 PO ×2 (16:34)
--- NOTE | 2017-03-01 16:35 | Discharge Inst-Post CATH ---
Discharge Inst-CATH Post Cardiac Cath D/C Inst Follow Up/Plan Appointment with Dr. Tavares's office in 2-4 weeks CARDIAC CATH DISCHARGE INSTRUCTIONS *Hold Metformin for 48 hours post heart cath. ACTIVITY * Go Home directly and rest. * Limit activity of the leg (or wrist if it was used) for 7 days including aerobics, swimming, jogging, bicycling, etc. * Restrict stair-climbing for 7 days if possible, if not, climb up with your non -cath leg, then bring together on the same step. * Avoid lifting, pushing, pulling or excessive movement of the affected extremity for 7 days. * Customary sexual activity may be resumed after 2 days-use caution not to use a position that strains or causes pain to the affected extremity. * No driving for 24 hours. * NO SMOKING. * Avoid straining for bowel movements for 7 days. * Gentle walking on level ground is allowed. * Returning to work will depend on the type of procedure and the results. Your doctor will discuss this with you. CALL YOUR DOCTOR FOR ANY OF THE FOLLOWING: *If bleeding from the puncture site occurs- Apply gentle pressure to site with clean cloth and call your doctor or EMS. * If a knot or lump forms under the skin, increases in size, or causes pain. * If bruising appears to be worsening or moving further down your leg instead of disappearing. * Temperature above 101 F. CARE OF YOUR GROIN INCISION; * Bruising or purple discoloration of the skin near the puncture site is common. * You may shower only, no bathtub bathing for 5 days. Be careful to avoid slipping as your leg may feel stiff. * If a closure device was used on your femoral artery, please see the attached guide regarding care of the device and your leg. * REMOVE the dressing from your groin the next day after your procedure in the shower. CARE OF YOUR WRIST INCISION; * Bruising or purple discoloration of the skin near the puncture site is common. * You may shower. * DO NOT submerge wrist. * Remove dressing in 24 hours. JACKELINE TAVARES MD Mar 01, 2017 16:35
--- NOTE | 2017-03-01 16:41 | Cardiac Cath Report ---
Cardiac Cath Report Physician (s)/End Worker (s) Physician JACKELINE BERMUDEZ MD Pre-Procedure Diagnosis Pre-Procedure Diagnosis: unstable angina, coronary artery disease Post-Procedure Note Procedure Start Date: Mar 01, 2017 Procedure Start Time: 16:00 Name of Procedure: left heart catheterization, left ventriculogram Findings/Procedure Note PROCEDURE NOTE: After explaining the procedure to the patient, all pros and cons were explained, all questions were answered. The patient signed the consent and then she was placed on the cardiac catheterization laboratory. The patient was placed on the cardiac catheterization laboratory. Groin was prepped SL fashion local anesthesia was used. Sheath placed in the artery. Liu right and left catheter were used to access the coronary system. Pigtail was used to access the left ventricular cavity. Left ventriculogram was done At the end of the procedure the sheath was removed. Closure device was used FINDINGS: Hemodynamics LV 120/14 end-diastolic pressure of 14 Aorta 108/66 mean of 62 ANATOMY: Left Main is free of obstructive disease Left Anterior Descending is tortuous with mild disease nonobstructive disease Left Circumflex is tortuous with mild disease structure disease Right Coronory Artery has multiple stents from the proximal to the distal portion, mild in-stent restenosis, beyond the stent mild disease, when necessary the bifurcation there is total occlusion of a very small posterolateral branch and very small PDA LV Gram was done showing normal left ventricular size and contractures PSV ejection fraction 60 percent CONCLUSION: 1. Patent multiple stents involving the whole body of the right coronary artery with mild to moderate in-stent restenosis, occlusion of her very small posterolateral branch that is a hairline artery with severe disease in the posterior descending artery, very small artery not amendable to intervention 2. Mild disease in the LAD and circumflex artery 3. Normal left ventricular size with normal contractibility, estimated ejection fraction 60 percent DISCUSSION AND RECOMMENDATION: patient has small vessel disease not amendable to intervention, medical therapy is recommended Anesthesia Type: Conscious Sedation Estimated blood loss (mL): 10 ml Contrast Amount: 59 ml Total Radiation Dose: 481 mGy Post-Procedure Diagnosis (1) Chest pain Assessment & Plan: EKG revealed no acute ST changes. Cardiac enzymes negative. Has significant hx CAD. Reports last stress test 2016, done in [place]. received nitroglycerin this morning prior to the stress test, during the stress test she did not have any chest pain, had no significant ischemia, TID value mildly increased, discussed with her the management plan, she is fairly anxious about her condition due to the current episode of chest pain, discussed the possible to discharging her and follow-up as an outpatient, patient is anxious and inquiring about having a cardiac catheterization and evaluating her coronaries due to the recurrent episode of chest pain that responded to nitroglycerin. I'll proceed with the procedure today.next Cardiac catheterization showed small vessel disease, medical therapy is recommended no intervention is working to Qualifiers: (2) CAD (coronary artery disease) Qualifiers: (3) HTN (hypertension) Assessment & Plan: patient was started on metoprolol 25 mg 2 times a day and lisinopril 5 mg daily Qualifiers: Qualified Codes: I10 - Essential (primary) hypertension (4) Hyperlipidemia Assessment & Plan: continue on Crestor Qualifiers: Qualified Codes: E78.2 - Mixed hyperlipidemia (5) Tobacco abuse (6) Hypothyroidism Qualifiers: Qualified Codes: E03.9 - Hypothyroidism, unspecified JACKELINE BERMUDEZ MD Mar 01, 2017 16:41
[2017-03-01] MEDS ORDERED: PATIENT MAY USE OWN MEDS, ALL PO SCH (16:45)
[2017-03-01] MEDS ORDERED: ROSUVASTATIN 10 MG PO SCH (21:00)
[2017-03-01] MEDS ORDERED: ATORVASTATIN 10 MG (LIPITOR) TABLET PO SCH (21:00)
[2017-03-01] MEDS ORDERED: traZODone 50 MG (DESYREL) TAB PO SCH (21:00)
--- NOTE | 2017-03-02 08:02 | STRESS TEST ---
DATE OF SERVICE: 03/01/2017 LEXISCAN MYOVIEW STRESS TEST REPORT REFERRING PHYSICIAN: Dr. Stan Millard. INDICATION: Chest pain. FINDINGS: Baseline heart rate is 58. Baseline blood pressure is 121/67. Baseline EKG is sinus rhythm with no ischemic changes. SUMMARY: The patient was injected with 10.1 mCi of technetium-99 Myoview and the resting images were obtained. Then, the patient received 0.4 mg of Lexiscan followed by 31.0 mCi of technetium-99 Myoview. Throughout the test, there were no EKG changes. The resting and stress images were reviewed and compared in the short axis, horizontal long axis, and vertical long axis views. Review of the images showed good radiotracer uptake with no significant ischemia or infarction on SPECT images. SSS is 1, SDS 1, TID value 1.14. On the gated images, the left ventricle appeared to be normal size with normal contractility. Calculated ejection fraction is 67%. CONCLUSION: 1. The patient tolerated Lexiscan well. 2. No ischemia or infarction on SPECT images. 3. Normal left ventricular size with normal contractility. Calculated ejection fraction is 67%. Job ID: [id number] DocumentID: [id number] Dictated Date: 03/01/2017 14:59:44 [employer] Date: 03/01/2017 23:00:47 Dictated By: JACKELINE BERMUDEZ MD
--- OUTSIDE RECORDS SUMMARY | 2017-03-02 14:51 | XMS REPORT | Continuity of Care Document ---
Author Author [employer] Organization [facility] Address Unknown Phone Unavailable Care Team Providers Care Supervisor Residential Name Role Phone [employer] Unavailable Unavailable Problems Problem Status Onset Date Classification Date Reported Comments Source Thoracic or lumbosacral neuritis or radiculitis, unspecified 12/31/2014 Diagnosis 01/04/2015 [facility] Cellulitis and abscess of leg, except foot 12/31/2014 Diagnosis 01/04/2015 [facility] Dysuria 12/02/2014 Diagnosis 12/06/2014 [facility] Gross hematuria 12/02/2014 Diagnosis 12/06/2014 [facility] Unspecified chest pain 10/18 Diagnosis 10/23/2014 [facility] Obstructive chronic bronchitis with (acute) exacerbation 10/18/2014 Diagnosis 10/23/2014 [facility] Other and unspecified angina pectoris 10/18/2014 Diagnosis 10/22/2014 [facility] Lumbago 09/03/2014 Diagnosis 09/07/2014 [facility] Unspecified hypothyroidism 09/03/2014 Diagnosis 2014 [facility] Symptomatic menopausal or female climacteric states 09/03/2014 Diagnosis 09/07/2014 [facility] [place] 08/23/2014 Diagnosis 08/27/2014 [facility] Hypothyroidism (disorder) Active Problem 01/04/2015 [facility] Lumbar radiculopathy (disorder) Active Problem 2014 [facility] Spondylolisthesis, congenital Diagnosis 08/31/2014 [facility] Degeneration of lumbar or lumbosacral intervertebral disc Diagnosis 08/31/2014 [facility] Lumbosacral spondylosis without myelopathy Diagnosis 03/2015 [facility] Spinal stenosis of lumbar region Diagnosis 08/31/2014 [facility] Medications Medication Details Route Status Patient Instructions Ordering Provider Order Date Source No Known Medications No known medications Active [facility] [place] Allergies, Adverse Reactions, Alerts Immunizations Immunization Date Given Site Status Last Updated Comments Source No data available for this section No data available for this section [facility] [place], [facility] Results Vital Signs Encounters Location Location Details Encounter Type Encounter Number Reason For Visit Attending Provider ADM Date DC Date Status Source [facility] [id number] Narendra Virk 08/23/20142014 [facility] [place] Outpatient [id number] Narendra Virk 08/27/2014 08/27/2014 [facility] [id number] Narendra Virk 09/03/20142014 [facility] [place] [facility] [id number] Amb Surgery [id number] Julio C Amador 09/11/2014 09/11/2014 Active [facility] [id number] Amb Surgery [id number] Jose Alberto Monchoailyn 10/02/2014 10/02/2014 [facility] [id number] Emergency [id number] Angel Gabriel 10/18/2014 10/18/2014 [facility] [id number] Narendra Virk 10/18/20142014 [facility] [place] [facility] Cancel/No Show [id number] Alyssia Mccarty 11/04/2014 [facility]04/[facility] [place] [facility] [id number] Narendra Virk 12/02/20142014 [facility] [place] AFCOS CD:[id number] Clinic ( Outpatient) [id number] Narendra Virk 12/02/2014 Active [facility] [place] Cancel/No Show [id number] Narendra Virk 12/04/2014 12/02/2014 [facility] [place] [id number] Narendra Virk 12/31/20142014 [facility] [place] Procedures Procedure Code Date Perfomer Comments Source Lumbar Steroid Epidural [facility] L-spine surgery - fusion L-4, L-5 09/27/2013 [facility] Heart catheterization with 5 stents placed 09/28/2010 [facility] [place] Heart catheterization with stent placement 05/23/2005 [facility] Cholecystectomy; [id number] [facility] Total abdominal hysterectomy (corpus and cervix), with or without removal of tube(s), with or without removal of ovary(s); [id number] 05/23/1982 [facility] [place] Appendectomy; [id number] [facility] [place] No data available for this section [facility] bilateral CTR [facility] Ligament repair rt leg [facility] Ulnar nerve transpoaition left [facility] Plan of Care Social History Assessment and Plan Family History Value Date Source Advance Directives Order Name Results Value Date Source
== END 2017-03-01 16:35 | disposition home or self-care (01) ==
LOC: EDUNIT# 00:11 → ER 00:13 → UNDOADMOB 01:30 → 4TH 01:30 → UNDOADMOB 01:50 → 4TH 01:50 → CATH 01:50 → UNDODISOB 21:09
PROVIDERS: ATTEND Internal Medicine
DX: I25.10 Atherosclerotic heart disease of native coronary artery without angina pectoris (principal); R07.89 Other chest pain; I10 Essential (primary) hypertension; I25.82 Chronic total occlusion of coronary artery; E78.2 Mixed hyperlipidemia; E03.9 Hypothyroidism, unspecified; I25.2 Old myocardial infarction; Z72.0 Tobacco use; Z79.899 Other long term (current) drug therapy; Z95.5 Presence of coronary angioplasty implant and graft
CPT/HCPCS: 36415; 71010; 78452; 80048; 80053; 80061; 83735; 83874; 83880; 84484; 85025; 85379; 85610; 85730; 93005; 93017; 93041; 93458

== ENCOUNTER → 2017-03-10 | Outpatient (CLI) | payer MEDICARE, MEDICAID ==
[~2017-03-10] MED LIST changes: +CATHETER FLUSH 10 ML SYR IV PRN; +IOHEXOL 350 MG/ML 100 ML (OMNIPAQUE 350) VIAL IV ONE; +LISI-556 PO; +METO-333 PO; +NS 100 ML (IVPB) BAG IV ONE
--- NOTE | 2017-03-10 14:24 | Diagnostic Imaging Report ---
PROCEDURE: CT chest with contrast only. TECHNIQUE: Multiple contiguous axial images were obtained through the chest after administration of intravenous contrast. INDICATION: Medial left lung opacity indeterminate radiographically. CT performed as further investigation. FINDINGS: There is no suspicious pulmonary nodule or lung mass. A tiny left upper lobe subpleural subcentimeter calcified granuloma as a benign finding is noted. No noncalcified or suspicious chest nodule. No hilar or mediastinal adenopathy. A 2-3 mm subpleural granuloma in the right middle lobe inferolaterally noted as well. No evidence of pneumonia. No thoracic adenopathy. No effusion or pneumothorax. Aorta is nonaneurysmal, and the visualized upper abdomen is negative. IMPRESSION: Benign calcified and noncalcified granulomatous residua. No suspicious chest nodule, adenopathy, or acute/suspicious finding. Dictated by: Dictated on workstation # [id number]
== END ==
LOC: RAD 12:35
PROVIDERS: ATTEND Family Medicine
DX: J84.10 Pulmonary fibrosis, unspecified (principal)
CPT/HCPCS: 71260